=== PATIENT | female | born 1995 | race Caucasian/White ===

== ENCOUNTER 2023-06-13 14:26 | Day surgery (SDC) | payer MEDICAID, SELFPAY ==
[2023-06-13] VITALS (11 sets, daily range): BP systolic 86–116; BP diastolic 53–73; PULSE 68–97; RESP 12–19; TEMP 36.3–36.8; O2SAT 95–100; BMI 25.2
[2023-06-13 15:02] LABS: Absolute Lymphocyte Count 1.69 X10^3/uL (0.83-4.51); Absolute Neutrophil Count 3.7 X10^3/uL (2.0-7.7); Basophil# 0.04 X10^3/uL; Basophil% 0.6 % (0-1); Eosinophil# 0.48 X10^3/uL; Eosinophils% 7.6 % (0-5); Hematocrit 31.5 % (37-47); Hemoglobin 10.2 g/dL (12.0-15.0); Lymphocyte # 1.69 X10^3/ul (0.83-4.51); Lymphocyte % 26.8 % (19-41); Mean Corp Hgb Conc 32.4 g/dL (32-36); Mean Corpuscular Hgb 28.5 pg (27.0-32.0); Mean Platelet Vol. 10.9 fl (6.2-12.0); Monocyte# 0.36 X10^3/uL; Monocyte% 5.7 % (0-10); NRBC Flagged by Analyzer 0 % (0-5); Neutrophil # 3.66 X10^3/uL (2.7-7.7); Neutrophil % 58.2 % (47-70); Platelet Count 173 K/mm3 (150-450); RBC Distribution Width CV 13.4 % (11.6-14.6); RBC Distribution Width SD 43.6 fl (35.1-43.9); Red Blood Count 3.58 M/mm3 (4.2-5.4); White Blood Count 6.3 K/mm3 (4.4-11.0)
--- NOTE | 2023-06-13 15:15 | CT_ITS ---
STUDY: CT BRAIN WITHOUT CONTRAST REASON FOR EXAM: Female, 27 years old. head trauma TECHNIQUE: Transaxial CT imaging of the brain was performed without administration of intravenous contrast material. Individualized dose optimization techniques were used for this CT. COMPARISON: None FINDINGS: Normal calvarium. Normal soft tissues. Normal size ventricles and extra-axial spaces for the patient''s age. Normal white matter tracts of the cerebral hemispheres. Normal basal ganglia and thalami. Normal brainstem. Normal cerebellum. There is no intracranial hemorrhage. There are no findings of an acute ischemic infarction. There is sinus disease. ASPECTS 10 CT/Brain/Head without Contrast IMPRESSION: There are no acute intracranial findings. Electronically Signed: Ethan Kumar MD at 15:47 EST ,
--- NOTE | 2023-06-13 15:17 | US_ITS ---
STUDY: ULTRASOUND OF THE FEMALE PELVIS - COMPLETE REASON FOR EXAM: Female, 27 years old. vaginal bleeding 2 weeks post r/o RPOC TECHNIQUE: Endovaginal. Transvaginal US was obtained to better visualized the ovaries. COMPARISON: None. FINDINGS: The uterus is retroverted and is in a midline position. The uterus measures 13.5 cm. Normal uterine cervix. The endometrium measures 42 mm in thickness, and is heterogeneous (striated). There is no demonstrated endometrial mass. There is no demonstrated myometrial mass. I.U.D. - The patient does not have an I.U.D. The right ovary is visualized. The right ovary measures 3.2 cm. There is no right ovarian cyst or ovarian mass. There is no visualized right adnexal mass or complex lesion. There is normal arterial and normal venous vascularity. The left ovary is visualized. The left ovary measures 3.2 cm. There is no left ovarian cyst or ovarian mass. There is no visualized left adnexal mass or complex lesion. There is normal arterial and normal venous vascularity. There is minimal fluid in the cul-de-sac. Unremarkable urinary bladder. US/Transvaginal Non- IMPRESSION: There is minimal fluid in the cul-de-sac. Diffusely thickened endometrium. This may relate to blood proximal or possibly retained products of conception. Electronically Signed: Ethan Kumar MD at 17:06 EST ,
[2023-06-13 15:21] LABS: Anion Gap 4 (5-15); BUN 15 mg/dL (7-18); BUN/Creat Ratio 20.3 RATIO (10-20); Calcium,Total 8.1 mg/dL (8.5-10.1); Chloride 109 mmol/L (98-107); Creatinine, Serum 0.74 mg/dL (0.55-1.02); EST Glomerular Filtration Rate 99 mL/min (>60); Est Glom Filt Rate - Afr Amer 119 mL/min (>60); Estimated Creatinine Clearance 110.07 ml/min; Glucose 140 mg/dL (74-106); Potassium 4.5 mmol/L (3.5-5.1); Sodium Level 138 mmol/L (136-145); Troponin-I HS 4 pg/mL (3.0-54.0); hCG Titer Quant., Serum 3 mIU/mL (1-3)
[2023-06-13] MEDS: 0.9% Normal Saline (1000mL) 1,000 ML 999 ML IV (15:21)
[2023-06-13] MEDS: Ondansetron 4 MG/2 ML Vial IV (15:21)
--- NOTE | 2023-06-13 15:21 | ED.VIS.FEGU ---
HPI HPI - Female History of Present Illness Chief Complaint: Vag Bleeding [facility] Medical History (Updated 06/13/23 @ 18:[address] Ion Hahn, DO) Anxiety Depression IUGR (intrauterine growth restriction) Allergy/AdvReac Type Severity Reaction Status Date / Time No Known Allergies Allergy Verified 06/13/23 14:29 Social History Smoking Status: Current some day smoker tobacco type: e-cigarettes EXAM Physical Exam Const Vital Signs: 06/13/23 14:29 06/13/23 14:34 06/13/23 16:00 Temperature 97.5 F L Temperature Source Temporal Pulse Rate 83 71 Respiratory Rate 18 12 Respiratory Effort Normal Non-Labored Blood Pressure 102/71 116/73 Blood Pressure Mean 81 87 Pulse Ox 95 98 Oxygen Delivery Method Room Air Room Air 06/13/23 17:00 06/13/23 17:17 Temperature Temperature Source Pulse Rate 75 75 Respiratory Rate 12 14 Respiratory Effort Blood Pressure 98/66 97/61 Blood Pressure Mean 76 73 Pulse Ox 99 99 Oxygen Delivery Method Room Air Room Air MDM MDM MDM Narrative Medical decision making narrative: HISTORY OF PRESENT ILLNESS: 19-year-old female presents with vaginal bleeding. She notes she is 2 weeks . No she is a . States she has had intermittent bleeding has been heavier last 24 hours. States she is soaking through more than 3 pads per hour. Per the patient she received 2 g of TXA IntraOp by EMS. No she passed out prior to arrival. States she was standing and fell and hit her head. Denies any headache prior to passing out no she felt lightheaded dizzy warm before she passed out. Denies any abdominal pain or fever. Notes history of vasovagal syncope. Denies taking blood thinners. Denies any history of bleeding diathesis REVIEW OF SYSTEMS: Pertinent positives: Syncope, vaginal bleeding Pertinent negatives: Headache, chest pain, palpitations, PHYSICAL EXAM: Nursing triage notes reviewed, Vital signs reviewed Constitutional: please see mdm HENT: MMM Eyes: Pupils equal round and reactive to light, Extraocular muscles intact Neck: No stridor, no JVD, full neck ROM Lungs: Clear to auscultation, No wheezing or rales. No increased work of breathing, no conversational dyspnea, no accessory muscle use, no nasal flaring. No respiratory distress noted Heart: Regular rate and rhythm, No murmurs, No rubs and No gallops, 2+ distal pulses (radial, femoral, posterior tibial) in all extremities Abdomen: Soft, there is no tenderness, rigidity, rebound or guarding, no obvious peritoneal signs, no palpable pulsatile abdominal masses, no auscultated abdominal bruit : No CVAT, pelvic exam performed with Amisha GRIFFIN as a rice farmworker showed some mild pooling of blood in the vaginal vault no obvious lacerations or other abnormalities. Extremities: No edema Neuro: No focal neurological deficits, cranial nerves II through XII intact, 5/5 strength in all extremities. Intact sensation to light touch in all extremities, 2+ reflexes bilateral patella tendons. Normal gait. No ataxia. Skin: No rash or lesions noted MEDICAL DECISION MAKING: Chief Complaint: Vaginal bleeding External records reviewed: Hemoglobin 8.8 on 05/20/2022 Factors affecting care: 2 weeks History obtained from others: Patient's Consults: ADVERTISING ACCOUNT EXECUTIVE spoke with Dr. Krueger MDM Narrative: Patient was initially hemodynamically stable, afebrile, nontoxic-appearing. Exam without focal cardiopulmonary maladies, without focal deficits. exam with oozing blood but no active severe hemorrhage. I considered the following differential diagnosis: hemorrhage, retained products of conception, severe anemia 2 large-bore IVs were placed, IV fluids were given for resuscitation, pelvic exam without any focus of bleeding or ability to repair. ALL IMAGES (IF OBTAINED) HAVE BEEN PERSONALLY REVIEWED AND INTERPRETED BY MYSELF. EKG normal sinus rhythm, normal axis, no intervals, no STEMI CBC with no leukocytosis, improving hemoglobin of 10.2, no thrombocytopenia High-sensitivity troponin is negative, no evidence of myocardial ischemia CMP without significant Yasmine normality, no MIRACLE, no anion gap, I have personally reviewed the patient's chest x-ray. Chest x-ray is unremarkable for pulmonary edema, pneumothorax, pneumonia or focal cardiopulmonary abnormality. CT scan of the head was negative Transvaginal ultrasound shows evidence of retained products of conception Spoke to Dr. Krueger who recommended OR intervention for dilation curettage. Patient updated. The patient and/or family, caregivers express understanding. The patient and/or family, caregivers agrees with the plan. Shared decision making: I will have a discussion with the patient and or visitors regarding risk/benefits of further testing or admission. They will be made aware of of the risk/benefits inherent in this decision they will be given the opportunity to voice understanding. Total critical care time today provided was at least 35 minutes. This excludes separately billable procedures. Critical care time (if documented) is secondary to the patient having high probability of clinically significant/life threatening deterioration in the patient's condition which required my urgent intervention. Impression: 1. Vaginal bleeding 2. Hypotension 3. Retained products of conception Dispo: Admit to OR This note was generated with [employer] dictation software. It may contain incorrect words, spelling, and punctuation that were not noted in review of the chart prior to signing. Lab Data Labs: Laboratory Results - last 24 hr 06/13/23 14:40 WBC 6.3 RBC 3.58 L Hgb 10.2 L Hct 31.5 L MCV 88.0 MCH 28.5 MCHC 32.4 RDW Std Deviation 43.6 RDW Coeff of Dwayne 13.4 Plt Count 173 MPV 10.9 Immature Gran % (Auto) 1.100 H Neut % (Auto) 58.2 Lymph % (Auto) 26.8 [place] % (Auto) 5.7 Eos % (Auto) 7.6 H Baso % (Auto) 0.6 Absolute Neuts (auto) 3.7 Absolute Lymphs (auto) 1.69 Nucleated RBC % 0 PT 14.4 INR 1.1 APTT 24.7 Sodium 138 Potassium 4.5 Chloride 109 H Carbon Dioxide 25.0 Anion Gap 4 L BUN 15 Creatinine 0.74 Estim Creat Clear Calc 110.07 Est GFR (MDRD) Af Amer 119 Est GFR (MDRD) Non-Af 99 BUN/Creatinine Ratio 20.3 H Glucose 140 H Calcium 8.1 L Troponin I High Sens 4 HCG, Quant 3 Blood Type A POSITIVE Antibody Screen NEGATIVE Radiography Diagnostic Testing: Clinical Impression(s) from Imaging Studies Brain CT 06/13/23 15:15 IMPRESSION: There are no acute intracranial findings. Electronically Signed: Ethan Kumar MD at 15:47 EST , Transvaginal US 06/13/23 15:17 IMPRESSION: There is minimal fluid in the cul-de-sac. Diffusely thickened endometrium. This may relate to blood proximal or possibly retained products of conception. Electronically Signed: Ethan Kumar MD at 17:06 EST , Chest X-Ray 06/13/23 15:34 IMPRESSION: No radiographic evidence of acute cardiopulmonary disease. Electronically Signed: Ethan Kumar MD at 15:47 EST , Discharge Plan Dx/Rx/DC Orders Clinical Impression: Retained products of conception Disposition Disposition: Acute Care [facility]
--- OUTSIDE RECORDS SUMMARY | 2023-06-13 15:31 | XMS RPT_ITS | CCD ---
Author Name Unknown Address [address] [place] [address] Organization [facility] Care Team Providers Care Traffic Agent Name Role Phone JESSE WILLARD Unavailable Unavailable SAMUEL CRONIN Unavailable Unavailable [place], Rocio October Unavailable Unavailab Jordan Aguilar Unavailable Unavailable [place], Rocio October Unavailable Unavailab le [place], Rocio October Unavailable Unavailab le [place], Rocio October Unavailable Unavailab le [place], Rocio October Unavailable Unavailab le [place], Rocio October Unavailable Unavailab le [place], Rocio October Unavailable Unavailab le [place], Rocio October Unavailable Unavailab le [place], Rocio October Unavailable Unavailab le [place], Rocio October Unavailable Unavailab gama [place], Rocio October Unavailable Unavailab Lauren DE LA TORRE, Jordan Conklin Primary Care Provider 1( [phone] Jordan Alejo MD Primary Care Provider JORDAN ALEJO Primary Care Unavailable YUDY ADAME Referring Unavailable JORDAN ALEJO Primary Care Unavailable YUDY ADAME Attending Unavailable YUDY ADAME Referring Unavailable JORDAN ALEJO Primary Care Unavailable FARHAN PICKARD Attending Unavailable JORDAN ALEJO Primary Care Unavailable MIKE CAMARGO Attending Unavailable FARHAN PICKARD Referring Unavailable JORDAN ALEJO Primary Care Unavailable MIKE CAMARGO Attending Unavailable JORDAN ALEJO Primary Care Unavailable MIKE CAMARGO Referring Unavailable JORDAN ALEJO Primary Care Unavailable MIKE CAMARGO Attending Unavailable JORDAN ALEJO Primary Care Unavailable YUDY ADAME Referring Unavailable JORDAN ALEJO Primary Care Unavailable JORDAN ALEJO Primary Care Unavailable MIKE CAMARGO Attending Unavailable JORDAN ALEJO Primary Care Unavailable RAMESH DIAZ Attending Unavailable JORDAN ALEJO Primary Care Unavailable PLOTYUDY MURRAY Referring Unavailable JORDAN ALEJO Primary Care Unavailable JORDAN ALEJO Primary Care Unavailable PLOTTREVOR, YUDY Attending Unavailable PB PHAM Referring Unavail able JORDAN ALEJO Primary Care Unavailable PLOTYUDY MURRAY Attending Unavailable JORDAN ALEJO Primary Care Unavailable PLOTYUDY MURRAY Attending Unavailable JORDAN ALEJO Primary Care Unavailable FARHAN PICKARD Attending Unavailable JORDAN ALEJO Primary Care Unavailable PLOTTREVOR, YUDY Referring Unavailable JORDAN ALEJO Primary Care Unavailable FARHAN PICKARD Referring Unavailable JORDAN ALEJO Primary Care Unavailable PLOTTREVOR, YUDY Referring Unavailable JORDAN ALEJO Primary Care Unavailable FARHAN PICKARD Referring Unavailable Allergies Allergy Classification Reported Allergen(s) Allergy Type Date of Onset Reaction(s) Facility (1 source) No Known Medication Allergies; Translations: [No Known Medication Allergies] Propensity to adverse reactions to drug (disorder) [facility] Repository (20 sources) Seasonal allergy; Translations: [SEASONAL ALLERGIES] Allergy to substance 4 Other: See [facility] (20 sources) Bees; Translations: [BEES] Propensity to adverse reactions 5 Swelling [facility] Work Phone: Medications Completed/Discontinued Medications Medication Drug Class(es) Dates Sig (Normalized) Sig (Original) Ethinyl Estradiol / Levonorgestrel (2 sources) Progestin, Estrogen, Progestin-containi ng Intrauterine Device Start: 03-05-2015 End: 03-30-2022 take 1 tablet by mouth once daily Levonorgestrel-Ethi nyl Estrad (LEVORA-28) 0.15-0.03 mg per tablet Indications: General counseling for prescription of oral contraceptives Take 1 tablet by mouth once daily. 3 Package 1 03/05/2015 03/30/2022 Discontinued Problems Active Problems Problem Classification Problem Date Documented Date Episodic/Chronic Coagulation and hemorrhagic disorders (1 source) Thrombocytopenia, unspecified; Translations: [Thrombocytopenia affecting (HCC)] Onset: 04-16-2023 Chronic Other complications of (18 sources) Anemia during - baby not yet delivered; Translations: [Anemia complicating , third trimester] Onset: 04-15-2022 04-15-2022 Chronic Other complications of (5 sources) Anemia of ; Translations: [Anemia complicating , third trimester] Onset: 03-18-2023 03-18-2023 Chronic Other complications of (20 sources) High risk ; Translations: [Supervision of high risk , unspecified, third trimester] Onset: 03-30-2022 Episodic Other complications of (20 sources) care status; Translations: [Supervision of with insufficient care, third trimester] Onset: 03-30-2022 Episodic Other complications of (20 sources) Thrombocytopenic disorder; Translations: [Other diseases of the blood and blood-forming organs and certain disorders involving the immune mechanism complicating , unspecified trimester] Onset: 03-30-2022 Episodic Other complications of (4 sources) Uterine size for dates discrepancy; Translations: [Uterine size-date discrepancy, third trimester] Episodic Other complications of (4 sources) Poor growth affecting management; Translations: [Maternal care for other known or suspected poor growth, third trimester, not applicable or unspecified] Episodic Other complications of (1 source) Other diseases of the blood and blood-forming organs and certain disorders involving the immune mechanism complicating , unspecified trimester; Translations: [Thrombocytopenia affecting (HCC)] Onset: 04-16-2023 Episodic Other complications of (1 source) Supervision of high risk , unspecified, third trimester; Translations: [Supervision of high risk in third trimester] Onset: 04-14-2023 Episodic Other complications of (1 source) Supervision of high risk , unspecified, second trimester; Translations: [Supervision of high risk in second trimester] Onset: 03-16-2023 Episodic Other and delivery including normal (20 sources) ; Translations: [Encounter for supervision of normal , unspecified, unspecified trimester] Onset: 03-24-2022 Episodic Other screening for suspected conditions (not mental disorders or infectious disease) (10 sources) Patient encounter status; Translations: [Encounter for other specified screening] Onset: 01-19-2023 01-18-2023 Episodic Residual codes; unclassified (3 sources) Gestation period, 31 weeks; Translations: [31 weeks gestation of ] Episodic Residual codes; unclassified (1 source) Gestation period, 33 weeks; Translations: [33 weeks gestation of ] Episodic Residual codes; unclassified (1 source) Gestation period, 34 weeks; Translations: [34 weeks gestation of ] Episodic Residual codes; unclassified (1 source) Gestation period, 35 weeks; Translations: [35 weeks gestation of ] Episodic Residual codes; unclassified (2 sources) Gestation period, 38 weeks; Translations: [38 weeks gestation of ] Episodic Residual codes; unclassified (1 source) Gestation period, 16 weeks; Translations: [16 weeks gestation of ] 12-28-2022 Episodic Residual codes; unclassified (1 source) Gestation period, 18 weeks; Translations: [18 weeks gestation of ] 01-12-2023 Episodic Residual codes; unclassified (1 source) Gestation period, 19 weeks; Translations: [19 weeks gestation of ] 01-18-2023 Episodic Residual codes; unclassified (1 source) ultrasound scan abnormal; Translations: [Pyelectasis of fetus on ultrasound] 01-18-2023 Episodic Residual codes; unclassified (1 source) Gestation period, 22 weeks; Translations: [22 weeks gestation of ] 02-09-2023 Episodic Residual codes; unclassified (1 source) Gestation period, 27 weeks; Translations: [27 weeks gestation of ] 03-16-2023 Episodic Residual codes; unclassified (2 sources) Gestation period, 29 weeks; Translations: [29 weeks gestation of ] 03-31-2023 Episodic Residual codes; unclassified (1 source) 31 weeks gestation of ; Translations: [31 weeks gestation of ] Onset: 04-14-2023 Episodic Residual codes; unclassified (1 source) 18 weeks gestation of ; Translations: [18 weeks gestation of ] Onset: 03-31-2023 Episodic Substance-related disorders (17 sources) History of clinical finding in subject; Translations: [History of marijuana use] Onset: 12-23-2022 12-23-2022 Chronic Urinary tract infections (1 source) Urinary tract infection, site not specified; Translations: [Urinary tract infection, site not specified] Onset: 12-17-2017 Episodic Past or Other Problems Problem Classification Problem Date Documented Date Episodic/Chronic Immunizations and screening for infectious disease (20 sources) Encounter for screening for infections with a predominantly sexual mode of transmission; Translations: [Contact with and (suspected) exposure to other viral communicable diseases] Onset: 01-26-2018 Episodic Other complications of (20 sources) Late entry into care; Translations: [Supervision of with insufficient care, unspecified trimester] Onset: 12-23-2022 12-23-2022 Episodic Other complications of (19 sources) Supervision of with other poor reproductive or obstetric history, unspecified trimester; Translations: [ with other poor obstetric history] Onset: 12-23-2022 12-23-2022 Episodic Other complications of (18 sources) Finding of pattern of ; Translations: [Supervision of other high risk pregnancies, unspecified trimester] Onset: 12-23-2022 12-23-2022 Episodic Other complications of (1 source) Supervision of with insufficient care, unspecified trimester; Translations: [Late care affecting , antepartum] Onset: 12-23-2022 Episodic Residual codes; unclassified (20 sources) Other problems related to lifestyle; Translations: [Other problems related to lifestyle] Onset: 03-24-2022 Episodic Residual codes; unclassified (14 sources) History of previous intrauterine growth restricted ; Translations: [Personal history of other complications of , childbirth and the puerperium] Onset: 12-28-2022 12-28-2022 Episodic Residual codes; unclassified (1 source) 16 weeks gestation of ; Translations: [16 weeks gestation of ] Onset: 01-18-2023 Episodic Screening and history of mental health and substance abuse codes (20 sources) H/O: depression; Translations: [Personal history of other mental and behavioral disorders] Onset: 03-24-2022 Episodic Substance-related disorders (20 sources) Marijuana user; Translations: [Drug use complicating , unspecified trimester] Onset: 03-24-2022 Episodic Results Test Name Value Interpretation Reference Range Facil ity Vital Signs Date Time Vital Sign Value Performing Clinician Eduardo rajput 04-14-2023 08:04-0500 Body weight 78.93 kg Farhan Pickard APRN.CNM Work Phone: [facility] 04-14-2023 08:04-0500 Diastolic blood pressure 62 mm[Hg] Farhan Pickard STEAM PRESSER.CNM Work Phone: [facility] 04-14-2023 08:04-0500 Systolic blood pressure 112 mm[Hg] Farhan Pickard STEAM PRESSER.CNM Work Phone: [facility] 03-31-2023 08:28-0500 Body weight 75.3 kg Yudy Plotts STEAM PRESSER.CNM Work Phone: [facility] 03-31-2023 08:28-0500 Diastolic blood pressure 82 mm[Hg] Yudy Plotts STEAM PRESSER.CNM Work Phone: [facility] 03-31-2023 08:28-0500 Systolic blood pressure 116 mm[Hg] Yudy Plotts STEAM PRESSER.CNM Work Phone: [facility] 03-16-2023 08:41-0500 Body weight 75.48 kg Mike Camargo MD Work Phone: [facility] 03-16-2023 08:41-0500 Diastolic blood pressure 80 mm[Hg] Mike Camargo MD Work Phone: [facility] 03-16-2023 08:41-0500 Systolic blood pressure 118 mm[Hg] Mike Camargo MD Work Phone: [facility] 02-09-2023 09:43-0400 Body weight 71.94 kg Mike Camargo MD Work Phone: [facility] 02-09-2023 09:43-0400 Diastolic blood pressure 70 mm[Hg] Mike Camargo MD Work Phone: [facility] 02-09-2023 09:43-0400 Systolic blood pressure 102 mm[Hg] Mike Camargo MD Work Phone: [facility] 01-12-2023 08:50-0400 Body height 170.2 cm Yudy Plotts STEAM PRESSER.CNM Work Phone: [facility] 01-12-2023 08:50-0400 Body weight 69.04 kg Yudy Plotts STEAM PRESSER.CNM Work Phone: [facility] 01-12-2023 08:50-0400 Diastolic blood pressure 62 mm[Hg] Yudy Plotts STEAM PRESSER.CNM Work Phone: [facility] 01-12-2023 08:50-0400 Systolic blood pressure 110 mm[Hg] Yudy Plotts STEAM PRESSER.CNM Work Phone: [facility] 12-28-2022 09:30-0400 Body weight 67.13 kg Yudy Plotts STEAM PRESSER.CNM Work Phone: [facility] 12-28-2022 09:30-0400 Diastolic blood pressure 68 mm[Hg] Yudy Plotts STEAM PRESSER.CNM Work Phone: [facility] 12-28-2022 09:30-0400 Systolic blood pressure 110 mm[Hg] Yudy Plotts STEAM PRESSER.CNM Work Phone: [facility] 05-15-2022 09:30-0500 Body weight 74.75 kg Farhan Pickard STEAM PRESSER.CNM Work Phone: [facility] 05-15-2022 09:30-0500 Diastolic blood pressure 70 mm[Hg] Farhan Pickard STEAM PRESSER.CNM Work Phone: [facility] 05-15-2022 09:30-0500 Systolic blood pressure 110 mm[Hg] Farhan Pickard STEAM PRESSER.CNM Work Phone: [facility] 05-05-2022 10:26-0500 Body height 160 cm Naseem Jung MD Work Phone: [facility] 05-05-2022 10:26-0500 Body weight 74.84 kg Naseem Jung MD Work Phone: [facility] 05-05-2022 10:26-0500 Diastolic blood pressure 76 mm[Hg] Naseem Jung MD Work Phone: [facility] 05-05-2022 10:26-0500 Systolic blood pressure 110 mm[Hg] Naseem Jung MD Work Phone: [facility] 04-28-2022 10:55-0500 Body weight 73.03 kg Pb Edgar MD Work Phone: [facility] 04-28-2022 10:55-0500 Diastolic blood pressure 70 mm[Hg] Pb Edgar MD Work Phone: [facility] 04-28-2022 10:55-0500 Systolic blood pressure 110 mm[Hg] Pb Edgar MD Work Phone: [facility] 04-14-2022 10:42-0500 Body weight 70.67 kg Sudha Tammi STEAM PRESSER.APPLICATION COORDINATOR Work Phone: [facility] 04-14-2022 10:42-0500 Diastolic blood pressure 70 mm[Hg] Sudha Jefferson STEAM PRESSER.APPLICATION COORDINATOR Work Phone: [facility] 04-14-2022 10:42-0500 Systolic blood pressure 112 mm[Hg] Sudha Tammi STEAM PRESSER.APPLICATION COORDINATOR Work Phone: [facility] 03-30-2022 10:34-0500 Body weight 70.76 kg Pb Edgar MD Work Phone: [facility] 03-30-2022 10:34-0500 Diastolic blood pressure 72 mm[Hg] Pb Edgar MD Work Phone: [facility] 03-30-2022 10:34-0500 Systolic blood pressure 116 mm[Hg] Pb Edgar MD Work Phone: [facility] Encounters Encounter Date Encounter Type Care Provider Facility Start: 05-31-2023 End: 05-31-2023 ambulatory JORDAN ALEJO Facility:[facility] Start: 05-27-2023 End: 05-27-2023 ambulatory JORDAN ALEJO Facility:[facility] Start: 05-19-2023 End: 05-19-2023 ambulatory JORDAN ALEJO Facility:[facility] Start: 05-13-2023 End: 05-13-2023 ambulatory JORDANMERLE ALEJO Facility:[facility] Start: 04-29-2023 End: 04-29-2023 ambulatory JORDAN ALEJO Facility:[facility] Start: 04-16-2023 End: 04-17-2023 ambulatory JORDAN ALEJO Facility:[facility] Start: 04-15-2023 Telephone encounter Explosive Ordnance Disposal Technician RN Maternal Medicine Procedures Date Procedure Procedure Detail Performing Clinician Start: 03-31-2023 URINE OB DIP B/O Parish Adame STEAM PRESSER.CNM Work Phone: Start: 03-31-2023 Us preg uterus after 1st trimest 05/10 gestation Yudy Adame STEAM PRESSER.CNM Work Phone: Start: 03-16-2023 URINE OB DIP B/O Mike Camargo MD Work Phone: Start: 02-09-2023 URINE OB DIP B/O Mike Camargo MD Work Phone: Start: 01-18-2023 Us preg uterus after 1st trimest 05/10 gestation Pb Edgar MD Work Phone: Start: 01-12-2023 Antibody screen JORDAN ARREDONDO Plan of Treatment Date Care Activity Detail Author Start: 01-12-2026 Pap Testing Pap Testing [facility] Start: 08-18-2024 PAP TESTING PAP TESTING [facility] Start: 04-15-2023 RSV Vaccine (1 - Risk 1-dose series) RSV Vaccine (1 - Risk 1-dose series) [facility] Start: 04-14-2023 End: 07-14-2023 CBC W Auto Differential panel - Blood CBC + DIFF Lab Routine Supervision of high risk in third trimester 31 weeks gestation of Expected: 04/14/2023, Expires: 07/14/2023 [facility] Work Phone: Immunizations Immunization Date Immunization Notes Care Provider Polina kirk 10-13-2004 tetanus and diphther ia toxoids, adsorbed, preservative free, for adult use (2 Lf of tetanus toxoid and 2 Lf of diphtheria toxoid) Nurse Wstr Work Phone: [facility] Work Phone: 12-03-1999 diphtheria, tetanus toxoids and acellular pertussis vaccine Nurse Wstr Work Phone: [facility] Work Phone: 12-03-1999 measles, mumps and rubella virus vaccine Nurse Wstr Work Phone: [facility] Work Phone: 12-03-1999 poliovirus vaccine, inactivated Nurse Wstr Work Phone: [facility] Work Phone: 02-13-1998 diphtheria, tetanus toxoids and acellular pertussis vaccine Nurse Wstr Work Phone: [facility] Work Phone: 02-13-1998 haemophilus influenz ae type b vaccine, PRP-D conjugate Nurse Wstr Work Phone: [facility] Work Phone: 02-22-1996 DTP-Haemophilus influenzae type b conjugate vaccine Nurse Wstr Work Phone: [facility] Work Phone: 02-22-1996 measles, mumps and rubella virus vaccine Nurse Wstr Work Phone: [facility] Work Phone: 02-22-1996 trivalent poliovirus vaccine, live, oral Nurse Wstr Work Phone: [facility] Work Phone: 12-09-1995 Chicken Pox (disease) Nurse Wstr Work Phone: [facility] Work Phone: 05-23-1995 DTP-Haemophilus influenzae type b conjugate vaccine Nurse Wstr Work Phone: [facility] Work Phone: 05-23-1995 trivalent poliovirus vaccine, live, oral Nurse Wstr Work Phone: [facility] Work Phone: 05-13-1995 hepatitis B vaccine, pediatric or pediatric/adolescent dosage Nurse Wstr Work Phone: [facility] Work Phone: 1994 DTP-Haemophilus influenzae type b conjugate vaccine Nurse Wstr Work Phone: [facility] Work Phone: 1994 hepatitis B vaccine, pediatric or pediatric/adolescent dosage Nurse Wstr Work Phone: [facility] Work Phone: 1994 trivalent poliovirus vaccine, live, oral Nurse Wstr Work Phone: [facility] Work Phone: 1994 hepatitis B vaccine, pediatric or pediatric/adolescent dosage Nurse Wstr Work Phone: [facility] Work Phone: Payers Date Payer Category Payer Medicaid [id number] 2022 Medicaid [id number] 2018 Unknown 2017 Private Health Insurance 2017 Unknown [id number] 1994 Unknown [id number] 1994 Unknown [id number] 1994 Unknown [id number] 1994 Unknown [id number] Social History Date Type Detail Facility Start: 03-24-2022 Tobacco smoking stat [facility] Ex-smoker [facility] Work Phone: End: 04-20-2012 History of tobacco use Current smoker [facility] Work Phone: End: 04-20-2012 History of tobacco use Cigarette Smoker [facility] Work Phone: Start: 03-24-2022 Tobacco use and exposure Smokeless tobacco non-user [facility] Work Phone: Start: 03-24-2022 End: 04-14-2023 Alcohol intake Current non-drinker of alcohol (finding) [facility] Start: 03-24-2022 Education 13 [facility] Start: 09-05-2021 [facility] Start: 1995 Sex Assigned At Female C [facility] Start: 03-14-2022 End: 03-24-2022 Exposure to SARS-CoV-2 (event) Not sure [facility] Work Phone: Start: 05-25-2022 End: 03-16-2023 History of Social function [facility] Start: 05-25-2022 End: 03-16-2023 Tobacco use panel [facility] Start: 03-23-2022 Gender identity Identifies as female gender (finding) [facility] Start: 03-23-2022 Sexual orientation Heterosexual (fin ding) [facility] Start: 12-23-2022 Education 15 [facility] The thought of scott ledezma myself has occurred to me Never [facility] Goals Date Patient Goal Desired Activity /State Personal health goal Personal health goal Clinical Notes 03-24-2022 to 06-02-2023 Telephone Encounter - Dunia Kay RN - 04/15/2023 11:23 AM ESTPrenatal Quick Notes - Farhan Pickard APRN.CN - 04/14/2023 8:20 AM ESTPatient InstructionsPatient InstructionsPatient Instructions Note Date & Type Note Facility 06-02-2023 Note HNO ID: [id number] Author: DUNIA SUAZO RN Service: ? Author Type: Registered Nurse Type: Progress Notes Filed: 06/02/2023 09:44 Note Text: Patient delivered via at home. See OB Outcome note. Dunia Suazo RN [facility] 04-30-2023 Note HNO ID: [id number] Author: Lima Layne RN Service: ? Author Type: Registered Nurse Type: Progress Notes Filed: 04/30/2023 1:44 PM Note Text: Care Recommendations listed below: Care Plan: Unilateral AP renal pelvis dilation 11 mm Plan: MD Mike Consults: Specialty: Peds Urology Delivery Plan: Date: tb, Location: [place] Mode of delivery: Induction Delivery provider:Laborist with MFM assist as needed floor: Routine Plan: Routine Follow up recommended per pediatric urology anomaly management tree: PAM in hospital at > 48 hours Amoxicillin prophylaxis 10mg/kg daily Outpatient PAM and urology consult 1-2 weeks post-delivery Lima Layne RN [facility] 04-15-2023 Miscellaneous Notes 3rd risk assessment form submitted 04/15/2023. Dunia Kay RN documented in this encounter [facility] 04-14-2023 Miscellaneous Notes CECELIA-S: Shari Kwan is a 27 year old female who presents at 31w6d with RAYMOND:06/10/2023, by Last Menstrual Period for a routine visit. Denies headache, visual changes, chest pain, shortness of breath, vaginal bleeding, leakage of fluid, or dysuria. Feeling well, no complaints. O: See flow sheet Gen: No apparent distress, appears tired/sleepy Abd: Gravid, nontender TWG 44 lb S=D ASSESSMENT/PLAN: 1. Supervision of high risk in third trimester 2. 31 weeks gestation of P: 1) PTL precautions reviewed and when to call 2) RTO at 2 wk for growth US 3) Growth US 03/31, normal renal dilation,FW 38%, LILIA 14 4) Marijuana use last 2 weeks ago, recommend cessation and discussed risk 5) Hx IUGR, S<D this . Repeat growth in 4 weeks 6) Didn't start iron, taking PN with iron. Eating iron rich foods. 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 I have re-performed the HPI, Physical Examination, Assessment and Plan. Farhan Pickard APRN.CNM documented in this encounter [facility] 04-14-2023 Instructions Zi Pineda Cma - 04/14/2023 8:05 AM EST SEQUENTIAL SCREENINGS The [facility] offers sequential screenings for women who are interested in screenings for chromosomal abnormalities and certain defects during a . The sequential screen combines ultrasound and blood tests to determine the risk of chromosomal abnormalities, including Down's Syndrome (Trisomy 21) and Trisomy 18, as well as open neural tube defects including spina bifida. Ultrasound examination is performed between 11 weeks and 13 weeks gestational age. Blood tests are drawn after the ultrasound and again later in the between 15 and 21 weeks gestational age. Please let your physician know if you are interested in this testing. It will require an appointment with our scheme technician. This is not an ultrasound performed by a physician in our office during a routine visit. SIGNS AND SYMPTOMS OF LABOR 1. Contractions every 10 minutes or more often 2. Clear, pink, or brownish fluid (water) leaking from vagina 3. Feeling that baby is pushing down, pressure 4. Low, dull backache 5. Cramps that feel like a period 6. Cramps with or without diarrhea If you notice any of the above symptoms, contact our office at [phone] and ask to speak with a nurse. After hours, you can call doctors registry at [phone] OR call [facility] at [phone] and ask to have the doctor concrete analyst paged. If you consider this an emergency, dial [phone] or go to your nearest emergency department. NEED HELP? Are you dealing with a violent or abusive relationship? Are you a victim of rape or sexual assult? Call [facility] ([place]) 24 hour Crisis Hotline: 149.663.5338 or 943-199-7293. MANUAL Your Guide to a Healthy manual is now on-line. Visit [email or web address] to download your free copy documented in this encounter [facility] 03-31-2023 Miscellaneous Notes S: Shari Kwan is a 27 year old female who presents at 29.6 weeks gestation for a routine visit. Just completed growth US- EFW 38%, LILIA 14. Denies headache, visual changes, chest pain, shortness of breath, vaginal bleeding, leakage of fluid, or dysuria. Feeling well, no complaints. O: See flow sheet Gen: No apparent distress Abd: Gravid, nontender ASSESSMENT/PLAN: 1. Thrombocytopenia affecting (HCC) - ICD9: 649.30, 287.5, ICD10: O99.119, D69.6 (primary diagnosis) - CBC- Repeat in 4 weeks 2. Supervision of high risk in third trimester - ICD9: V23.9, ICD10: O09.93 3. 29 weeks gestation of - ICD9: V22.2, ICD10: Z3A.29 P: 1) PTL precautions reviewed and when to call 2) RTO 2 weeks or sooner if needed Yudy Adame APRN.CNM documented in this encounter [facility] 03-31-2023 Instructions Laurel Arriaga Ma - 03/31/2023 8:13 AM EST SEQUENTIAL SCREENINGS The [facility] offers sequential screenings for women who are interested in screenings for chromosomal abnormalities and certain defects during a . The sequential screen combines ultrasound and blood tests to determine the risk of chromosomal abnormalities, including Down's Syndrome (Trisomy 21) and Trisomy 18, as well as open neural tube defects including spina bifida. Ultrasound examination is performed between 11 weeks and 13 weeks gestational age. Blood tests are drawn after the ultrasound and again later in the between 15 and 21 weeks gestational age. Please let your physician know if you are interested in this testing. It will require an appointment with our scheme technician. This is not an ultrasound performed by a physician in our office during a routine visit. SIGNS AND SYMPTOMS OF LABOR 1. Contractions every 10 minutes or more often 2. Clear, pink, or brownish fluid (water) leaking from vagina 3. Feeling that baby is pushing down, pressure 4. Low, dull backache 5. Cramps that feel like a period 6. Cramps with or without diarrhea If you notice any of the above symptoms, contact our office at [phone] and ask to speak with a nurse. After hours, you can call doctors registry at [phone] OR call [facility] at [phone] and ask to have the doctor concrete analyst paged. If you consider this an emergency, dial [phone]- or go to your nearest emergency department. NEED HELP? Are you dealing with a violent or abusive relationship? Are you a victim of rape or sexual assult? Call [facility] ([place]) 24 hour Crisis Hotline: 883.818.9211 or 968-716-4016. MANUAL Your Guide to a Healthy manual is now on-line. Visit [email or web address] to download your free copy documented in this encounter [facility] 03-22-2023 Miscellaneous Notes Patient reviewed provider's Viewabill message. Jessica Bell RN Left message for patient to call office or check CBC result [place] message. Jessica Bell RN ----- Message from Mike Camargo MD sent at 03/18/2023 9:23 AM EST ----- Mild anemia - needs every other day iron with OJ Platelets slightly low at 139 Kalpesh to review at next visit & discuss repeat cbc Other labs normal Mike Camargo MD documented in this encounter [facility] 03-16-2023 Miscellaneous Notes KJ - VB No. LOF No. CTXS No. Movement: present. Other c/o: No. Medication list reviewed. Physical Exam See Flow Sheet Gen: no accute distress, well appearing Abd: soft, nontender, gravid A/P 27w5d Estimated Date of Delivery: 06/10/23 Labs: 28 week labs today Bilateral renal pelvis dilation & h/o IUGR - f/u US scheduled Declines Tdap Declines LARC PTL precautions reviewed, Kick counts reviewed. Mike Camargo MD documented in this encounter [facility] 03-16-2023 Instructions s Laurel Adams - 03/16/2023 8:33 AM EST SEQUENTIAL SCREENINGS The [facility] offers sequential screenings for women who are interested in screenings for chromosomal abnormalities and certain defects during a . The sequential screen combines ultrasound and blood tests to determine the risk of chromosomal abnormalities, including Down's Syndrome (Trisomy 21) and Trisomy 18, as well as open neural tube defects including spina bifida. Ultrasound examination is performed between 11 weeks and 13 weeks gestational age. Blood tests are drawn after the ultrasound and again later in the between 15 and 21 weeks gestational age. Please let your physician know if you are interested in this testing. It will require an appointment with our scheme technician. This is not an ultrasound performed by a physician in our office during a routine visit. SIGNS AND SYMPTOMS OF LABOR 1. Contractions every 10 minutes or more often 2. Clear, pink, or brownish fluid (water) leaking from vagina 3. Feeling that baby is pushing down, pressure 4. Low, dull backache 5. Cramps that feel like a period 6. Cramps with or without diarrhea If you notice any of the above symptoms, contact our office at [phone] and ask to speak with a nurse. After hours, you can call doctors registry at [phone] OR call [facility] at [phone] and ask to have the doctor concrete analyst paged. If you consider this an emergency, dial 9--1 or go to your nearest emergency department. NEED HELP? Are you dealing with a violent or abusive relationship? Are you a victim of rape or sexual assult? Call [facility] ([facility] 24 hour Crisis Hotline: 389.557.5417 or 633-112-4636. MANUAL Your Guide to a Healthy manual is now on-line. Visit [email or web address] to download your free copy documented in this encounter [facility] 02-16-2023 Miscellaneous Notes 2nd risk assessment form submitted 02/16/23 Jinny Garcia RN documented in this encounter [facility] 02-09-2023 Miscellaneous Notes KJ - VB No. LOF No. CTXS No. Movement: present. Other c/o: No. Medication list reviewed. Physical Exam See Flow Sheet Gen: no accute distress, well appearing Abd: soft, nontender, gravid A/P 22w5d Estimated Date of Delivery: 06/10/23 Labs: 28 week labs prdered Bilateral renal pelvis dilation - schedule follow up US at 30 weeks Mike Camargo MD documented in this encounter [facility] 02-09-2023 Instructions Laurel Arriaga Ma - 02/09/2023 9:38 AM EDT SEQUENTIAL SCREENINGS The [facility] offers sequential screenings for women who are interested in screenings for chromosomal abnormalities and certain defects during a . The sequential screen combines ultrasound and blood tests to determine the risk of chromosomal abnormalities, including Down's Syndrome (Trisomy 21) and Trisomy 18, as well as open neural tube defects including spina bifida. Ultrasound examination is performed between 11 weeks and 13 weeks gestational age. Blood tests are drawn after the ultrasound and again later in the between 15 and 21 weeks gestational age. Please let your physician know if you are interested in this testing. It will require an appointment with our scheme technician. This is not an ultrasound performed by a physician in our office during a routine visit. SIGNS AND SYMPTOMS OF LABOR 1. Contractions every 10 minutes or more often 2. Clear, pink, or brownish fluid (water) leaking from vagina 3. Feeling that baby is pushing down, pressure 4. Low, dull backache 5. Cramps that feel like a period 6. Cramps with or without diarrhea If you notice any of the above symptoms, contact our office at [phone] and ask to speak with a nurse. After hours, you can call doctors registry at [phone] OR call [facility] at [phone] and ask to have the doctor concrete analyst paged. If you consider this an emergency, dial 91-3 or go to your nearest emergency department. NEED HELP? Are you dealing with a violent or abusive relationship? Are you a victim of rape or sexual assult? Call [facility] ([place]) 24 hour Crisis Hotline: 619.208.1062 or 381-092-3688. MANUAL Your Guide to a Healthy manual is now on-line. Visit [email or web address] to download your free copy documented in this encounter [facility] 01-14-2023 Miscellaneous Notes Initial Risk Assessment Form submitted on January 14, 2023 Dunia Gonzales RN documented in this encounter [facility] 01-12-2023 Note HNO ID: [id number] Author: Yudy Adame APRN.CHASE Service: ? Author Type: Pusher Operator Type: Progress Notes Filed: 01/12/2023 9:23 AM Note Text: INITIAL OB ASSESSMENT OB Provider: Yudy Adame APRN CNM HPI: Shari is a 27 year old White Female here to establish Obstetrical Care. Patient's last menstrual period was 09/03/2022 (exact date). from OB Dating Form. Cycles regular was unplanned but accepted Complaints: had some rectal bleeding after hard BM's OB History T1 L1 SAB0 IAB0 Ectopic0 Multiple0 Live Births1 # 1 - Date: 05/19/22, Sex: Female, Weight: 5 lb 12 oz (2.608 kg), GA: 38w4d, Delivery: Vaginal, Spontaneous, Apgar1: 8, Apgar5: 9, Living: Living, Comments: induction for IUGR, EBL 400mL, 1st degree perineal laceration # 2 - Date: None, Sex: None, Weight: None, GA: None, Delivery: None, Apgar1: None, Apgar5: None, Living: None, Comments: None Previous history: Prior : never History of 4th degree laceration: No History of shoulder dystocia: No History of Hypertensive disorders including pre-eclampsia, chronic hypertension or gestational hypertension: No History of gestational diabetes: No Patient's Risk Screening for delivery: Have you had a prior kevin between 20w and 36w6d?: No MEDICAL/PSYCHOSOCIAL HISTORY: History of hemorrhage or bleeding concerns: No Thyroid Disease: No History of chronic hypertension: No History of pre-existing diabetes: No No results found for: ABORHD No weight on file for this encounter. History of abnormal pap: No Prior treatment for cervical dysplasia: none. History of STDs: None Tobacco use: No Caffeine use: Yes, iced coffees occasionally Drug use: No Alcohol use: No Multivitamin with Folic acid: Yes Judaism or heritage: No Would refuse blood transfusion if medically necessary: No Are you currently employed? Yes, Occupation: [employer] Do you have any history of depression, anxiety, PTSD, eating disorders or other mood problems: Yes Do you have any safety concerns or history of traumatic events that you would like to discuss with your provider: No How often does this describe you? I don't have enough money to pay my bills: Never Within the past 12 months, have you worried that your food would run out before you had money to buy more: Never In the past 12 months, has lack of reliable transportation kept you from going to medical appointments or work, or from keeping things needed for daily living: Never In the past 12 months, have you had any concerns about having a place to live, or about the condition or quality of your housing: Never Are there any cultural or spiritual needs we should be aware of: No Depression: denies symptoms of depression. OB Depression and Anxiety Screening- This Encounter (since 01/11/2023) Over the past 2 weeks have you felt down, depressed, or hopeless? Negative Over the past two weeks, have you felt little interest or pleasure in doing things?? 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 Current Outpatient Medications Medication Sig Dispense Refill prental multivitamin 27 mg iron- 800 mcg tablet Take 1 tablet by mouth once daily. Ferrous Sulfate (SLOW FE) 142 mg (45 mg iron) TbER Take by mouth. (Patient not taking: Reported on 12/23/2022) No current facility-administered medications for this visit. Allergies As of Date: 01/12/2023 Allergen Noted Reaction SEASONAL ALLERGIES 01/02/2014 Other: See Comments BEES 04/07/2005 Swelling Fully Assessed 01/12/2023 Does patient have penicillin allergy: No REVIEW OF SYSTEMS: GENERAL: Negative for: Fever or Chills HEENT: Negative for: Headache, Impaired Vision, Ringing in Ears, Nosebleeds NECK: Negative for: Swelling, Pain, Stiffness RESPIRATORY: Negative for: Cough, Shortness of breath, Wheezing GASTROINTESTINAL: Negative for: Heartburn, Constipation, Diarrhea, Blood in stool, Vomiting (more content not included)... [facility] 01-12-2023 Miscellaneous Notes Patient seen for NOB. See progress note. Yudy Adame APRN.CNM documented in this encounter [facility] 01-12-2023 History of Presen t illness Narrative Images from the original note were not included. INITIAL OB ASSESSMENT OB Provider: Yudy Adame APRN CNM HPI: Shari is a 27 year old White Female here to establish Obstetrical Care. Patient's last menstrual period was 09/03/2022 (exact date). from OB Dating Form. Cycles regular was unplanned but accepted Complaints: had some rectal bleeding after hard BM's OB History T1 L1 SAB0 IAB0 Ectopic0 Multiple0 Live Births1 # 1 - Date: 05/19/22, Sex: Female, Weight: 5 lb 12 oz (2.608 kg), GA: 38w4d, Delivery: Vaginal, Spontaneous, Apgar1: 8, Apgar5: 9, Living: Living, Comments: induction for IUGR, EBL 400mL, 1st degree perineal laceration # 2 - Date: None, Sex: None, Weight: None, GA: None, Delivery: None, Apgar1: None, Apgar5: None, Living: None, Comments: None Previous history: Prior : never History of 4th degree laceration: No History of shoulder dystocia: No History of Hypertensive disorders including pre-eclampsia, chronic hypertension or gestational hypertension: No History of gestational diabetes: No Patient's Risk Screening for delivery: Have you had a prior kevin between 20w and 36w6d?: No MEDICAL/PSYCHOSOCIAL HISTORY: History of hemorrhage or bleeding concerns: No Thyroid Disease: No History of chronic hypertension: No History of pre-existing diabetes: No No results found for: ABORHD No weight on file for this encounter. History of abnormal pap: No Prior treatment for cervical dysplasia: none. History of STDs: None Tobacco use: No Caffeine use: Yes, iced coffees occasionally Drug use: No Alcohol use: No Multivitamin with Folic acid: Yes Judaism or heritage: No Would refuse blood transfusion if medically necessary: No Are you currently employed? Yes, Occupation: [employer] Do you have any history of depression, anxiety, PTSD, eating disorders or other mood problems: Yes Do you have any safety concerns or history of traumatic events that you would like to discuss with your provider: No How often does this describe you? I don't have enough money to pay my bills: Never Within the past 12 months, have you worried that your food would run out before you had money to buy more: Never In the past 12 months, has lack of reliable transportation kept you from going to medical appointments or work, or from keeping things needed for daily living: Never In the past 12 months, have you had any concerns about having a place to live, or about the condition or quality of your housing: Never Are there any cultural or spiritual needs we should be aware of: No Depression: denies symptoms of depression. OB Depression and Anxiety Screening- This Encounter (since 01/11/2023) Over the past 2 weeks have you felt down, depressed, or hopeless? Negative Over the past two weeks, have you felt little interest or pleasure in doing things? 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 Current Outpatient Medications Medication Sig Dispense Refill prental multivitamin 27 mg iron- 800 mcg tablet Take 1 tablet by mouth once daily. Ferrous Sulfate (SLOW FE) 142 mg (45 mg iron) TbER Take by mouth. (Patient not taking: Reported on 12/23/2022) No current facility-administered medications for this visit. Allergies As of Date: 01/12/2023 Allergen Noted Reaction SEASONAL ALLERGIES 01/02/2014 Other: See Comments BEES 04/07/2005 Swelling Fully Assessed 01/12/2023 Does patient have penicillin allergy: No REVIEW OF SYSTEMS: GENERAL: Negative for: Fever or Chills HEENT: Negative for: Headache, Impaired Vision, Ringing in Ears, Nosebleeds NECK: Negative for: Swelling, Pain, Stiffness RESPIRATORY: Negative for: Cough, Shortness of breath, Wheezing GASTROINTESTINAL: Negative for: Heartburn, Constipation, Diarrhea, Blood in stool, Vomiting MUSCULOSKELETAL: Negative for: Muscle or joint pain, stiffness, Joint swelling NEUROLOGIC/PSYCHIATRIC: Negative for: Weakness, Paralysis, Numbness, Tingling, Tremor, Anxiety, Depression, Memory loss . Hx of antidepressant age 19 - stopped taking and no current treatment SKIN: Negative for: Rash, Itching GENITOURINARY: Negative for: vaginal itching, vaginal discharge, hematuria or dysuria and Positive for: urinary frequency PHYSICAL EXAM: BP 110/62 Ht 5' 7 (1.70m) Wt 152 lb 3.2 oz (69.0kg) LMP 09/03/2022 BMI 23.83 kg/(m^2). GENERAL: pleasant in no apparent distress DERMATOLOGY: Normal and without lesions NECK: Supple and full range of motion CHEST: Normal inspiratory effort BREAST: soft, non-tender, symmetric, no dominant mass, normal nipple-areolar complex, no lymphadenopathy, and no nipple discharge ABDOMEN: soft, non-tender, and no masses NEURO: alert and oriented x3,exam grossly non-focal PELVIS: External genitalia normal without lesions. Perineal body intact. No vaginal or cervical lesions. Cervix closed. No adnexal masses or tenderness. Clinical Pelvimetry: Pelvimetry clinically assessed as adequate Limited OB ultrasound exam: not performed OB Risk Screening: Completed, positive findings include: Patient answered 'Yes' to Partner with Herpes SBIRT Shari Kwan was given the 4P's screening tool. Shari answered as follows: OB Opioid Screening - Last Recorded (since 04/17/2022) Did any of your parents have a problem with alcohol or other drug use? Yes father-drugs Does your partner have a problem with alcohol or other drug use? No In the past, have you had difficulties in your life because of alcohol or other drugs, including prescription medications? Yes Issues with ETOH in past -none since 7 years In the past month have you drunk any alcohol or used other drugs? No Are you taking medication for pain during the either prescribed or not? No Based on the screen and further questions, she is considered at Low risk due to:Low level of use stopped prior to or immediately upon known . Positive reinforcement of current behavior. Yudy Adame APRN.CNM ASSESSMENT/PLAN: 1. 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 Late care affecting , antepartum - ICD9: V23.7, ICD10: O09.30 3. IUGR (intrauterine growth restriction) in prior , - ICD9: V23.49, ICD10: O09.299 4. Short interval between pregnancies affecting , antepartum - ICD9: V23.89, ICD10: O09.899 PLAN: 1) Patient oriented to practice. Discussed nutrition, folic acid supplementation, dietary guidelines, exercise, smoking, alcohol, caffeine, and drug use. Discussed gestational weight gain guidelines. Discussed aneuploidy and carrier screening. Regarding aneuploidy screening, nuchal translucency/first trimester early anatomy ultrasound and NIPT were discussed. Regarding carrier screening, the myriad screen was discussed. The risks/benefits and limitations of NIPT/aneuploidy screening were reviewed including the potential for false negative and false positive results. We discussed the availability of professional-society guided carrier screening and reviewed the conditions screened and limitations of screening. The availability of genetic counseling was reviewed. Information on aneuploidy/carrier screening was provided. The patient chooses: Aneuploidy screening: declines screening Reviewed midwifery and stripe marker services that are available. 2) PNL today 3) PAP completed - unsure of last one done 4) GC/CH completed 5) ASA daily Follow up in 1 week for anatomy US and 4 weeks SITA Yudy Adame APRN.CNM documented in this encounter [facility] 01-12-2023 Instructions Zi Pineda Cma - 01/12/2023 8:41 AM EDT Please select the following link to access the [facility] Your Guide to a Healthy . [email or web address] documented in this encounter [facility] 12-28-2022 Miscellaneous Notes S: Shari Kwan is a 27 year old female who presents at 16.4 weeks gestation for a consult . Has not completed NOB or ultrasound to date. Office unable to get a hold of patient to schedule. Has 7 month old daughter. She denies any concerns. Positive movement starting last week. Occasional nausea without emesis. Denies headache, visual changes, chest pain, shortness of breath, vaginal bleeding, leakage of fluid, or dysuria. O: See flow sheet Gen: No apparent distress Abd: Gravid, non tender FHT via doppler- 148 bpm ASSESSMENT/PLAN: 1. 16 weeks gestation of - ICD9: V22.2, ICD10: Z3A.16 (primary diagnosis) 2. Late care affecting , antepartum - ICD9: V23.7, ICD10: O09.30 3. Short interval between pregnancies affecting , antepartum - ICD9: V23.89, ICD10: O09.899 4. Supervision of high risk in third trimester - ICD9: V23.9, ICD10: O09.93 5. History of prior with IUGR - ICD9: V13.29, ICD10: Z87.59 - URINE OB DIP B/O - OBSTETRIC ULTRASOUND WHI- dating vs. Anatomy - Declines aneuploidy screening - Taking vitamin - Start ASA daily - Will need all labs completed at next visit RTO- NOB and OB US Yudy Aadme APRN.CNM documented in this encounter [facility] 12-28-2022 Instructions Zi Pineda Cma - 12/28/2022 9:30 AM EDT SEQUENTIAL SCREENINGS The [facility] offers sequential screenings for women who are interested in screenings for chromosomal abnormalities and certain defects during a . The sequential screen combines ultrasound and blood tests to determine the risk of chromosomal abnormalities, including Down's Syndrome (Trisomy 21) and Trisomy 18, as well as open neural tube defects including spina bifida. Ultrasound examination is performed between 11 weeks and 13 weeks gestational age. Blood tests are drawn after the ultrasound and again later in the between 15 and 21 weeks gestational age. Please let your physician know if you are interested in this testing. It will require an appointment with our scheme technician. This is not an ultrasound performed by a physician in our office during a routine visit. SIGNS AND SYMPTOMS OF LABOR 1. Contractions every 10 minutes or more often 2. Clear, pink, or brownish fluid (water) leaking from vagina 3. Feeling that baby is pushing down, pressure 4. Low, dull backache 5. Cramps that feel like a period 6. Cramps with or without diarrhea If you notice any of the above symptoms, contact our office at [phone] and ask to speak with a nurse. After hours, you can call doctors registry at [phone] OR call [facility] at [phone] and ask to have the doctor concrete analyst paged. If you consider this an emergency, dial 9-1-3 or go to your nearest emergency department. NEED HELP? Are you dealing with a violent or abusive relationship? Are you a victim of rape or sexual assult? Call [facility] [place] ([place]) 24 hour Crisis Hotline: 405.577.7822 or 920-060-1669. MANUAL Your Guide to a Healthy manual is now on-line. Visit [email or web address] [email or web address] to download your free copy documented in this encounter [facility] 12-23-2022 Miscellaneous Notes Left message for patient to call office. Our first US opening is January 04. Dunia Suazo RN Yes, Order signed. Thank you. Yudy Adame APRN.CNM Patient here for prenew OB telephone visit. She is approximately 15 weeks 6 days by dates. She has a new OB appointment with Yudy on January 12. Do you wish to order an ultrasound prior to the new OB appointment. Please advise documented in this encounter [facility] 12-23-2022 Miscellaneous Notes DISTANCE HEALTH VISIT This Team Access Model visit is a phone encounter. It required patient-provider interaction for the medical decision making as documented below. I have communicated my name and active licensure. The patient's identity and physical location were verified at the time of this visit. Father of the baby is the father of her other child. Patient delivered her last child on May 19, 2022. She is 15 weeks 6 days by dates. She states she had a positive test the end of September or beginning of October. She denies any movement. States she just got busy working and adjusting to a new baby and time escaped her with scheduling an appointment for this . See phone note dated December 23. Has a history of IUGR with her previous . Pt has a history of depression diagnosed in 2014. She h took medication for 3 months in 2014. She states that she did have depression. Discussed increased risks of depression during and and importance of reporting the development or worsening of symptoms should they occur. Pt denies ever having any suicidal thoughts or tendencies or thoughts of hurting others. Patient was exposed to herpes her last . Denies her having any breaks herself. Patient states she did use marijuana her last but stopped during the third trimester. She denies any marijuana use this . I have discussed with her the risks of marijuana use during and advised her to continue not using. Patient desires aneuploidy screening. Contact information for [facility] given to patient to check on insurance coverage. Patient finds genetic carrier screening testing.Yolanda Tran RN TKRN documented in this encounter [facility] 12-23-2022 Note HNO ID: [id number] Author: Yolanda Tran RN Service: ? Author Type: ? Type: Progress Notes Filed: 12/23/2022 1:41 PM Note Text: INITIAL OB ASSESSMENT OB Provider: Yolanda Tran RN HPI: Shari is a 27 year old White Female here to establish Obstetrical Care. Patient's last menstrual period was 09/03/2022 (exact date). from OB Dating Form. Cycles regular was unplanned but accepted Complaints: had some rectal bleeding after hard BM's OB History T1 L1 SAB0 IAB0 Ectopic0 Multiple0 Live Births1 # 1 - Date: 05/19/22, Sex: Female, Weight: 5 lb 12 oz (2.608 kg), GA: 38w4d, Delivery: Vaginal, Spontaneous, Apgar1: 8, Apgar5: 9, Living: Living, Comments: induction for IUGR, EBL 400mL, 1st degree perineal laceration # 2 - Date: None, Sex: None, Weight: None, GA: None, Delivery: None, Apgar1: None, Apgar5: None, Living: None, Comments: None Previous history: Prior : never History of 4th degree laceration: No History of shoulder dystocia: No History of Hypertensive disorders including pre-eclampsia, chronic hypertension or gestational hypertension: No History of gestational diabetes: No Patient's Risk Screening for delivery: Have you had a prior kevin between 20w and 36w6d?: No MEDICAL/PSYCHOSOCIAL HISTORY: History of hemorrhage or bleeding concerns: No Thyroid Disease: No History of chronic hypertension: No History of pre-existing diabetes: No No results found for: ABORHD No weight on file for this encounter. History of abnormal pap: No Prior treatment for cervical dysplasia: none. History of STDs: None Tobacco use: No Caffeine use: Yes, iced coffees occasionally Drug use: No Alcohol use: No Multivitamin with Folic acid: Yes Judaism or heritage: No Would refuse blood transfusion if medically necessary: No Are you currently employed? Yes, Occupation: [employer] Do you have any history of depression, anxiety, PTSD, eating disorders or other mood problems: Yes Do you have any safety concerns or history of traumatic events that you would like to discuss with your provider: No How often does this describe you? I don't have enough money to pay my bills: Never Within the past 12 months, have you worried that your food would run out before you had money to buy more: Never In the past 12 months, has lack of reliable transportation kept you from going to medical appointments or work, or from keeping things needed for daily living: Never In the past 12 months, have you had any concerns about having a place to live, or about the condition or quality of your housing: Never Are there any cultural or spiritual needs we should be aware of: No Depression: denies, admits to symptoms of depression. 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 No pertinent surgical history. Current Outpatient Medications Medication Sig Dispense Refill prental multivitamin 27 mg iron- 800 mcg tablet Take 1 tablet by mouth once daily. Ferrous Sulfate (SLOW FE) 142 mg (45 mg iron) TbER Take by mouth. (Patient not taking: Reported on 12/23/2022) No current facility-administered medications for this visit. Allergies As of Date: 12/23/2022 Allergen Noted Reaction SEASONAL ALLERGIES 01/02/2014 Other: See Comments BEES 04/07/2005 Swelling Fully Assessed 12/23/2022 Does patient have penicillin allergy: No [facility] 12-23-2022 History of Presen t illness Narrative INITIAL OB ASSESSMENT OB Provider: Yolanda Tran RN HPI: Shari is a 27 year old White Female here to establish Obstetrical Care. Patient's last menstrual period was 09/03/2022 (exact date). from OB Dating Form. Cycles regular was unplanned but accepted Complaints: had some rectal bleeding after hard BM's OB History T1 L1 SAB0 IAB0 Ectopic0 Multiple0 Live Births1 # 1 - Date: 05/19/22, Sex: Female, Weight: 5 lb 12 oz (2.608 kg), GA: 38w4d, Delivery: Vaginal, Spontaneous, Apgar1: 8, Apgar5: 9, Living: Living, Comments: induction for IUGR, EBL 400mL, 1st degree perineal laceration # 2 - Date: None, Sex: None, Weight: None, GA: None, Delivery: None, Apgar1: None, Apgar5: None, Living: None, Comments: None Previous history: Prior : never History of 4th degree laceration: No History of shoulder dystocia: No History of Hypertensive disorders including pre-eclampsia, chronic hypertension or gestational hypertension: No History of gestational diabetes: No Patient's Risk Screening for delivery: Have you had a prior kevin between 20w and 36w6d?: No MEDICAL/PSYCHOSOCIAL HISTORY: History of hemorrhage or bleeding concerns: No Thyroid Disease: No History of chronic hypertension: No History of pre-existing diabetes: No No results found for: ABORHD No weight on file for this encounter. History of abnormal pap: No Prior treatment for cervical dysplasia: none. History of STDs: None Tobacco use: No Caffeine use: Yes, iced coffees occasionally Drug use: No Alcohol use: No Multivitamin with Folic acid: Yes Judaism or heritage: No Would refuse blood transfusion if medically necessary: No Are you currently employed? Yes, Occupation: [employer] Do you have any history of depression, anxiety, PTSD, eating disorders or other mood problems: Yes Do you have any safety concerns or history of traumatic events that you would like to discuss with your provider: No How often does this describe you? I don't have enough money to pay my bills: Never Within the past 12 months, have you worried that your food would run out before you had money to buy more: Never In the past 12 months, has lack of reliable transportation kept you from going to medical appointments or work, or from keeping things needed for daily living: Never In the past 12 months, have you had any concerns about having a place to live, or about the condition or quality of your housing: Never Are there any cultural or spiritual needs we should be aware of: No Depression: denies, admits to symptoms of depression. 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 No pertinent surgical history. Current Outpatient Medications Medication Sig Dispense Refill prental multivitamin 27 mg iron- 800 mcg tablet Take 1 tablet by mouth once daily. Ferrous Sulfate (SLOW FE) 142 mg (45 mg iron) TbER Take by mouth. (Patient not taking: Reported on 12/23/2022) No current facility-administered medications for this visit. Allergies As of Date: 12/23/2022 Allergen Noted Reaction SEASONAL ALLERGIES 01/02/2014 Other: See Comments BEES 04/07/2005 Swelling Fully Assessed 12/23/2022 Does patient have penicillin allergy: No documented in this encounter [facility] 12-18-2022 Miscellaneous Notes PNOB scheduled. She has had no prior care this . Jessica Bell RN Left message for patient to return phone call. Patient has an appointment with Yudy Adame for NOB appointment. Please schedule PNOB appointment at request of CP. documented in this encounter [facility] 05-25-2022 History of Presen t illness Narrative Patient delivered via by Lamberto on 05/19/22 at [facility]. See OB history. Jessica Bell RN documented in this encounter [facility] 05-15-2022 Miscellaneous Notes RADHAS: Shari Kwan is a 26 year old female who presents at 05/29/2022, by Last Menstrual Period for a routine visit. Denies headache, visual changes, chest pain, shortness of breath, vaginal bleeding, leakage of fluid, or dysuria. Feeling well, no complaints. No vaping or tobacco use. Denies any marijuana use in last use in March O: See flow sheet Gen: No apparent distress Abd: Gravid, nontender BPP 12/15, LILIA 19 ASSESSMENT/PLAN: 1. 38 weeks gestation of P: 1) PTL precautions reviewed and when to call 2) RTO 05/19 for growth US but may just go to induction. 3) BPP and NST for twice weekly testing 4) GBS today 5) If EFW remains 3-10%ile then delivery is recommended 38-39 weeks unless indicated earlier based on maternal or testing. Will await results and discuss with physician. Reviewed likely induction in the next few days. Discussed plan with cervical ripening and also pitocin. Questions answered. 6) Poor care and missed visits. Farhan Pickard APRN.CNM documented in this encounter [facility] 05-15-2022 Instructions Farhan Pickard APRN.CNM - 05/15/2022 9:19 AM EST Inducing labor -- The optimal time to deliver a baby in a woman who is postterm is sometimes hard to determine. The health care provider and woman must consider the risks and benefits of continuing the , the results of testing, and the condition of the cervix (the lower part of the uterus, which opens into the vagina). Normally, the cervix begins to dilate (open) and efface (thin) towards the end of a woman's . Inducing labor is more likely to take a long time in women whose cervix is not dilated or thinned. Most health care providers will induce labor if it does not begin spontaneously by 41 to 42 weeks of gestation. For a woman whose cervix is not favorable, labor can be induced with a medication applied directly to the cervix or in the vagina, which causes the cervix to soften and dilate. Sometimes medication is given by mouth. Cervical change may also be accomplished using mechanical methods such as a Ortiz catheter bulb. Most women, including those whose cervix is favorable, will also require an intravenous medication (oxytocin), which stimulates the uterus to contract; uterine contractions further stimulate cervical dilation and effacement. If induction of labor does not completely dilate and efface the cervix, or if complications develop that require the baby to be delivered quickly, a delivery is usually performed. Some patients may choose to have a delivery, especially if the fetus is very large (eg, >5000 grams or 11 pounds), or they have a history of previous delivery, or for reasons of personal choice. It is important to understand the risks and benefits of delivery and to discuss these issues with the physician who will be performing the procedure. SIGNS AND SYMPTOMS OF LABOR 1. Contractions every 10 minutes or more often 2. Clear, pink, or brownish fluid (water) leaking from vagina 3. Feeling that baby is pushing down, pressure 4. Low, dull backache 5. Cramps that feel like a period 6. Cramps with or without diarrhea If you notice any of the above symptoms, contact our office at [phone] and ask to speak with a nurse. After hours, you can call doctors registry at [phone] OR call [facility] at [phone] and ask to have the doctor concrete analyst paged. If you consider this an emergency, dial 5-4-0 or go to your nearest emergency department. NEED HELP? Are you dealing with a violent or abusive relationship? Are you a victim of rape or sexual assult? Call [facility] ([facility] 24 hour Crisis Hotline: 153.368.8811 or 766-339-5236. MANUAL Your Guide to a Healthy manual is now on-line. Visit [email or web address] [email or web address] to download your free copy documented in this encounter [facility] 05-07-2022 Miscellaneous Notes Pt assisted in scheduling weekly appointments for the next 2 weeks. Makeda Hopson LPN Message left asking pt to contact the office for results and instructions. Makeda Hopson LPN ----- Message from Pb Edgar MD sent at 05/06/2022 7:24 AM EST ----- Needs weekly BPP and weekly NSTs. Please see that NSTs are scheduled with her routine OB visits weekly until delivery. documented in this encounter [facility] 04-28-2022 Miscellaneous Notes Addended by: PB EDGAR on: 04/28/2022 12:24 PM Modules accepted: Orders Addended by: PB EDGAR on: 04/28/2022 11:17 AM Modules accepted: Orders Addended by: JESSICA BELL RN on: 04/28/2022 11:14 AM Modules accepted: Orders DM-Pt doing well. Denies vaginal Bleeding, Leaking fluid, or regular Contractions. Pt reports good movement Physical Exam: Gen: female in no apparent distress Abd: soft, Gravid. Non tender to palpation. See flow sheet A/P: @ 35.4 weeks 1) NEEDS GROWTH US today- FH<Dates 2) gbs next visit 3) Kick counts 4) RTO 1 week 5) continue IRON documented in this encounter [facility] 04-28-2022 Instructions Niki Kwan Ma - 04/28/2022 10:49 AM EST SEQUENTIAL SCREENINGS The [facility] offers sequential screenings for women who are interested in screenings for chromosomal abnormalities and certain defects during a . The sequential screen combines ultrasound and blood tests to determine the risk of chromosomal abnormalities, including Down's Syndrome (Trisomy 21) and Trisomy 18, as well as open neural tube defects including spina bifida. Ultrasound examination is performed between 11 weeks and 13 weeks gestational age. Blood tests are drawn after the ultrasound and again later in the between 15 and 21 weeks gestational age. Please let your physician know if you are interested in this testing. It will require an appointment with our scheme technician. This is not an ultrasound performed by a physician in our office during a routine visit. SIGNS AND SYMPTOMS OF LABOR 1. Contractions every 10 minutes or more often 2. Clear, pink, or brownish fluid (water) leaking from vagina 3. Feeling that baby is pushing down, pressure 4. Low, dull backache 5. Cramps that feel like a period 6. Cramps with or without diarrhea If you notice any of the above symptoms, contact our office at [phone] and ask to speak with a nurse. After hours, you can call doctors registry at [phone] OR call [facility] at [phone] and ask to have the doctor concrete analyst paged. If you consider this an emergency, dial 9-0-5 or go to your nearest emergency department. NEED HELP? Are you dealing with a violent or abusive relationship? Are you a victim of rape or sexual assult? Call [facility] ([facility] 24 hour Crisis Hotline: 359.982.1473 or 995-078-2629. MANUAL Your Guide to a Healthy manual is now on-line. Visit [email or web address] to download your free copy documented in this encounter [facility] 04-17-2022 Miscellaneous Notes Pt viewed message. Makeda Hopson LPN Voicemail full, unable to leave message. Detailed Blockboardhart message sent to pt. Please leave phone note open until pt has seen message. Makeda Hopson LPN Attempted to leave message but voicemailbox full. Please attempt to call patient back later ----- Message from Pb Edgar MD sent at 04/15/2022 10:05 AM EST ----- Results reviewed. Please Place copy in OB chart. Notify patient of anemia in . Recommend Ferrous sulfate 325mg daily. Will recheck CBC in 4 weeks. documented in this encounter [facility] documented as of this encounter (statuses as of 02/10/2023) [facility] History of Past illness Narrative* Problem Noted Date Diagnosed Date Resolved Date Anemia during in third trimester 04/15/2022 02/09/2023 Overview: 04/15/22: start iron. Pb Guzman MD Thrombocytopenia affecting 03/30/2022 02/09/2023 Limited care in third trimester 03/30/2022 02/09/2023 with care elsewhere in third trimester 03/30/2022 02/09/2023 Supervision of high risk pre gnancy in third trimester 03/30/2022 02/09/2023 with care elsewhere, antepartum 03/24/2022 02/09/2023 Overview: 03/24/2022atient is transferring care at 30 weeks from [place]. She states she signed a release of records form to have her records sent here. She states that she was last seen about 2 months ago. She states it has been very difficult to get appointments canceled and transfer care. TKRN documented as of this encounter (statuses as of 02/17/2023) [facility] History of Past illness Narrative* Problem Noted Date Diagnosed Date Resolved Date Anemia during in third trimester 04/15/2022 02/09/2023 Overview: 04/15/22: start iron. Pb Guzman MD Thrombocytopenia affecting 03/30/2022 02/09/2023 Limited care in third trimester 03/30/2022 02/09/2023 with care elsewhere in third trimester 03/30/2022 02/09/2023 Supervision of high risk pre gnancy in third trimester 03/30/2022 02/09/2023 with care elsewhere, antepartum 03/24/2022 02/09/2023 Overview: 03/24/2022atient is transferring care at 30 weeks from [place]. She states she signed a release of records form to have her records sent here. She states that she was last seen about 2 months ago. She states it has been very difficult to get appointments canceled and transfer care. TKRN documented as of this encounter (statuses as of 03/17/2023) [facility] History of Past illness Narrative* Problem Noted Date Diagnosed Date Resolved Date Anemia during in third trimester 04/15/2022 02/09/2023 Overview: 04/15/22: start iron. Pb Guzman MD Thrombocytopenia affecting 03/30/2022 02/09/2023 Limited care in third trimester 03/30/2022 02/09/2023 with care elsewhere in third trimester 03/30/2022 02/09/2023 Supervision of high risk pre gnancy in third trimester 03/30/2022 02/09/2023 with care elsewhere, antepartum 03/24/2022 02/09/2023 Overview: 03/24/2022atieileen is transferring care at 30 weeks from [place]. She states she signed a release of records form to have her records sent here. She states that she was last seen about 2 months ago. She states it has been very difficult to get appointments canceled and transfer care. TKRN documented as of this encounter (statuses as of 03/23/2023) [facility] History of Past illness Narrative* Problem Noted Date Diagnosed Date Resolved Date Anemia during in third trimester 04/15/2022 02/09/2023 Overview: 04/15/22: start iron. Pb Guzman MD Thrombocytopenia affecting 03/30/2022 02/09/2023 Limited care in third trimester 03/30/2022 02/09/2023 with care elsewhere in third trimester 03/30/2022 02/09/2023 Supervision of high risk pre gnancy in third trimester 03/30/2022 02/09/2023 with care elsewhere, antepartum 03/24/2022 02/09/2023 Overview: 03/24/2022atieileen is transferring care at 30 weeks from [place]. She states she signed a release of records form to have her records sent here. She states that she was last seen about 2 months ago. She states it has been very difficult to get appointments canceled and transfer care. TKRN documented as of this encounter (statuses as of 03/31/2023) [facility] History of Past illness Narrative* Problem Noted Date Diagnosed Date Resolved Date Anemia during in third trimester 04/15/2022 02/09/2023 Overview: 04/15/22: start iron. Pb Guzman MD Thrombocytopenia affecting 03/30/2022 02/09/2023 Limited care in third trimester 03/30/2022 02/09/2023 with care elsewhere in third trimester 03/30/2022 02/09/2023 Supervision of high risk pre gnancy in third trimester 03/30/2022 02/09/2023 with care elsewhere, antepartum 03/24/2022 02/09/2023 Overview: 03/24/2022azeb is transferring care at 30 weeks from [place]. She states she signed a release of records form to have her records sent here. She states that she was last seen about 2 months ago. She states it has been very difficult to get appointments canceled and transfer care. TKRN documented as of this encounter (statuses as of 03/31/2023) [facility]12-07-2022 History of Past illness Narrative* Problem Noted Date Diagnosed Date Resolved Date Anemia during in third trimester 04/15/2022 02/09/2023 Overview: 04/15/22: start iron. Pb Guzman MD Thrombocytopenia affecting 03/30/2022 02/09/2023 Limited care in third trimester 03/30/2022 02/09/2023 with care elsewhere in third trimester 03/30/2022 02/09/2023 Supervision of high risk pre gnancy in third trimester 03/30/2022 02/09/2023 with care elsewhere, antepartum 03/24/2022 02/09/2023 Overview: 03/24/2022azeb is transferring care at 30 weeks from [place]. She states she signed a release of records form to have her records sent here. She states that she was last seen about 2 months ago. She states it has been very difficult to get appointments canceled and transfer care. TKRN documented as of this encounter (statuses as of 04/14/2023) [facility]12-07-[facility] History of Past illness Narrative* Problem Noted Date Diagnosed Date Resolved Date Anemia during in third trimester 04/15/2022 02/09/2023 Overview: 04/15/22: start iron. Pb Guzman MD Thrombocytopenia affecting 03/30/2022 02/09/2023 Limited care in third trimester 03/30/2022 02/09/2023 with care elsewhere in third trimester 03/30/2022 02/09/2023 Supervision of high risk pre gnancy in third trimester 03/30/2022 02/09/2023 with care elsewhere, antepartum 03/24/2022 02/09/2023 Overview: 03/24/2022atient is transferring care at 30 weeks from [place]. She states she signed a release of records form to have her records sent here. She states that she was last seen about 2 months ago. She states it has been very difficult to get appointments canceled and transfer care. TKRN documented as of this encounter (statuses as of 04/15/2023) [facility]12-06-2022 Miscellaneous Notes* Quick Notes - Sudha Cadena APRN.CNP - 04/14/2022 11:05 AM EST RM-Pt doing well. Denies vaginal Bleeding, Leaking fluid, or regular Contractions. Pt reports good movement. GIRL Discuss the importance of getting the US done due to growth discrepancy b/t weeks and measurements. Physical Exam: Gen: no apparent distress Abd: soft, Gravid. Non tender to palpation. See flow sheet Pt will stop done and get her labs done today and schedule US RTO 2 weeks Sudha Cadena APRN.ALBERT documented in [facility] Instructions* Patient Instructions* Trixie Rose MA - 04/14/2022 10:34 AM EST SEQUENTIAL SCREENINGS The [facility] offers sequential screenings for women who are interested in screenings for chromosomal abnormalities and certain defects during a . The sequential screen combinesultrasound and blood tests to determine the risk of chromosomal abnormalities, including Down's Syndrome (Trisomy 21) and Trisomy 18, as well as open neural tube defects including spina bifida. Ultrasound examination is performed between 11 weeks and 13 weeks gestational age. Blood tests are drawn after the ultrasound and again later in the between 15 and 21 weeks gestational age. Please let your physician know if you are interested in this testing. It will require an appointment withour scheme technician. This is not an ultrasound performed by a physician in our office during a routine visit. SIGNS AND SYMPTOMS OF LABOR 1. Contractions every 10 minutes or more often 2. Clear, pink, or brownish fluid (water) leaking from vagina 3. Feeling that baby is pushing down, pressure 4. Low, dull backache 5. Cramps that feel like a period 6. Cramps with or without diarrhea If you notice any of the above symptoms, contact our office at [phone] and ask to speak with anurse. After hours, you can call doctors registry at [phone] OR call [facility] at [phone] ask to have the doctor concrete analyst paged. If you consider this an emergency, dial 9-5-8 or go to your nearest emergency department. NEED HELP? Are you dealing with a violent or abusive relationship? Are you a victim of rape or sexual assult? Call [facility] ([place]) 24 hour Crisis Hotline: 900.830.2723 or 824-614-5971. MANUAL Your Guide to a Healthy manual is now on-line. Visit [email or web address] to download your free copy documented [facility] Miscellaneous Notes* Quick Notes - Pb Edgar MD - 03/30/2022 11:05 AM EST DM- new ob. [place] has not been seen in over 2mo. Declines flu and tdap. Reportsuses marijuana every 3 days-she has no plans to stop. FH<dates- growth us ordered today. Pt thinks she had aneuploidy screening performed- MR release signed. 28 week labs ordered and plans to do them today. RTO 2 wks. Pb Guzman MD documented in this encounterC[facility] Instructions* Patient Instructions* Niki Kwan Ma - 03/30/2022 10:32 AM EST Please select the following link to access the [facility] Your Guide to a Healthy . [email or web address] documented in this encounterC[facility] History of Present illness Narrative* Pb Edgar MD - 03/30/2022 10:31 AM EST Images from the original note were not included. INITIAL OB ASSESSMENT OB Provider: Pb Edgar MD HPI: Shari Kwan is a 26 year old female here to establish Obstetrical Care. Patient's last menstrual period was 08/22/2021 (approximate). from OB Dating Form. Cycle length: 28 days Complaints: None was unplanned but accepted. OB History T0 L0 SAB0 IAB0 Ectopic0 Multiple0 Live Births0 Prior : never History of 4th degree laceration: No Patient's Risk Screening for delivery: History of abnormal pap: No Prior treatment for cervical dysplasia: none. History of STDs: None Tobacco use: yes- vaping occasional Caffeine use: Yes Drug use: Yes Alcohol use: No Multivitamin with Folic acid: Yes Occupation: no Judaism or heritage: No Would refuse blood transfusion if medically necessary: No BMI 27.63 kg/(m^2) Patient BMI over 30? No Marital Status:Committed relationship Partner: Name: Cosme Ellison Age: 26 Occupation: unemployed Gender: male History of STDs: None PAST MEDICAL HISTORY Diagnosis Date depression/anxiety PMH - PAST MEDICAL HISTORY OF Color Vision - Normal Vasovagal syncope No past surgical history on file. Current Outpatient Medications on File Prior to Visit Medication Sig prental multivitamin 27 mg iron- 800 mcg tablet Take 1 tablet by mouth once daily. Levonorgestrel-Ethinyl Estrad (LEVORA-28) 0.15-0.03 mg per tablet Take 1 tablet by mouth once daily. (Patient not taking: Reported on 03/24/2022) No current facility-administered medications on file prior to visit. Review of Systems: GENERAL: Negative for: Fever or Chills HEENT: Negative for: Headache, Impaired Vision, Ringing in Ears, Nosebleeds NECK: Negative for: Swelling, Pain, Stiffness RESPIRATORY: Negative for: Cough, Shortness of breath, Wheezing GASTROINTESTINAL: Negative for: Heartburn, Constipation, Diarrhea, Blood in stool, Vomiting MUSCULOSKELETAL: Negative for: Muscle or joint pain, stiffness, Joint swelling NEUROLOGIC/PSYCHIATRIC: Negative for: Weakness, Paralysis, Numbness, Tingling, Tremor, Anxiety, Depression, Memory loss SKIN: Negative for: Rash, Itching GENITOURINARY: Negative for: vaginal itching, vaginal discharge, hematuria or dysuria PHYSICAL EXAM: BP 116/72 Wt 156 lb (70.8kg) LMP 08/22/2021 GENERAL: pleasant female in no apparent distress DERMATOLOGY: Normal, without lesions, non-icteric, and non-hirsute NECK: full range of motion BREAST: deferred ABDOMEN: soft, non-tender, and gravid NEURO: alert and oriented x3,exam grossly non-focal PELVIS: deferred Limited OB ultrasound exam: Not performed OB Risk Screening: Completed, positive findings include: Patient answered 'Yes' to Partner with Herpes SBIRT Shari Kwan was given the 4's screening tool. Shari answered as follows: OB Opioid Screening - Last Recorded (since 07/03/2021) Did any of your parents have a problem with alcohol or other drug use? Yes father-drug Does your partner have a problem with alcohol or other drug use? No In the past, have you had difficulties in your life because of alcohol or other drugs, including prescription medications? No In the past month have you drunk any alcohol or used other drugs? Yes Marijuana Are you taking medication for pain during the either prescribed or not? No Based on the screen and further questions, she is considered at high risk due to: continued use. Patient offered out patient treatment and cessation- declines . In discussing this issue my medical advice was that Shari Kwan continue use as she is . Her readiness to change(0 lowest-10 highest) was 0. We discussed her motivation to change based upon this response. Patient will return in 2 to discuss her progress with this plan. In total, <5 minutes of personal time was spent administering and interpreting the screen, plus performing a brief intervention. Pb Guzman MD ASSESSMENT: 26 year old at 31.3 wks gestational age PLAN: 1) Patient oriented to practice. Discussed nutrition, folic acid supplementation, dietary guidelines, exercise, smoking, alcohol, caffeine, and drug use. Discussed routine OB labs including STD/HIV. Discussed aneuploidy screening options including serum screening and nuchal translucency. 2) MR release signed for record 3) declines FLU and Tdap today- importance of VACCINES reviewed 4) New OB labs reviewed- wnl (plts 147) 5) growth us ordered- scheduled today 6) 28 weeks labs today Follow up in 2 weeks or sooner prn. Pb Guzman MD documented in this encounterC[facility] Miscellaneous Notes* Quick Notes - Yolanda Tran RN - 03/24/2022 2:45 PM EST DISTANCE HEALTH VISIT This Team Access Model visit is a phone encounter. It required patient-provider interaction for themedical decision making as documented below. Father the baby involved. Patient is transferring careat 30 weeks from [place]. She states she signed a release of records form to have her records sent here. She states that she was last seen about 2 months ago. She states it has been very difficult to get appointments canceled and transfer care. Patient states she was exposed to herpes in the past. She denies any outbreaks.Pt has a history of anxiety/depression diagnosed in 2015. She states she that she only took medication for about 3 months. She believes she is doing well off medication. Discussed increased risks of depression during and and importance of reporting the development or worsening of symptoms should they occur. She states she has not had any suicidal thoughts since age 18. Patient states that she currently vapes and uses marijuana infrequently. I have dis cussed with patient the risks of using marijuana and vaping nicotine and advised her to quit. [place] tobacco quit line information given and [facility] smoking cessation program information given as well.Yolanda Tran RN documented in this encounterCinc[facility]Evaluation [facility]* Diagnosis with care elsewhere, antepartum Exposure to herpes Contact with or exposure to other viral diseases History of depression Personal history of other mental disorder Engages in vaping Marijuana use during [facility] Diagnosis Supervision of high risk in third trimester- Primary Unspecified high-risk with care elsewhere in third trimester Limited care in third trimester Drug use affecting in third trimester 31 weeks gestation of state, incidental Thrombocytopenia affecting (HCC) documented [facility] this encounter [facility]* Diagnosis 33 weeks gestation of - Primary state, incidental Supervision of high risk in third trimester Unspecified high-risk with care elsewhere in third trimester [facility]* Diagnosis Uterine size-date discrepancy, third trimester- Primary Anemia during in third trimester Thrombocytopenia affecting (HCC) with care elsewhere, antepartum Marijuana use during Limited care in third trimester Supervision of high risk in third trimester Unspecified high-risk 34 weeks gestation of state, incidental Poor growth affecting management of mother in third trimester, single or unspecified fetus [facility]* Diagnosis with care elsewhere, antepartum- Primary Limited care in third trimester Uterine size-date discrepancy, third trimester Intrauterine growth restriction (IUGR) affecting care of mother, third trimester, single gestation 35 weeks gestation of state, incidental [facility]* Diagnosis Uterine size-date discrepancy, third trimester Poor growth affecting management of mother in third trimester, single or unspecified fetus documented [facility]* Diagnosis Poor growth affecting management of mother in third trimester, single or unspecified fetus- Primary Uterine size-date discrepancy, third trimester 38 weeks gestation of state, incidental [facility]* Diagnosis 38 weeks gestation of - Primary state, incidental Anemia during in third trimester Drug use affecting in third trimester [facility]* Diagnosis Late care affecting , antepartum- Primary [facility]* Diagnosis Short interval between pregnancies affecting , antepartum- Primary IUGR (intrauterine growth restriction) in prior , with other poor obstetric history Late care affecting , antepartum History of depression History of depression Personal history of other mental disorder Exposure to herpes Contact with or exposure to other viral diseases History of marijuana use Patient request for diagnostic testing Other specified examination [facility]* Diagnosis 16 weeks gestation of - Primary state, incidental Late care affecting , antepartum Short interval between pregnancies affecting , antepartum Supervision of high risk in third trimester Unspecified high-risk History of prior with IUGR [facility]* Diagnosis 18 weeks gestation of - Primary state, incidental Late care affecting , antepartum IUGR (intrauterine growth restriction) in prior , with other poor obstetric history Short interval between pregnancies affecting , antepartum [facility]* Diagnosis Encounter for anatomic survey- Primary Late care affecting , antepartum 19 weeks gestation of state, incidental Pyelectasis of fetus on ultrasound Abnormal findings on screening documented [facility] encounter [facility]* Diagnosis 31 weeks gestation of state, incidental with care elsewhere in third trimester Limited care in third trimester [facility]* Diagnosis Supervision of high risk in second trimester- Primary Unspecified high-risk 22 weeks gestation of state, incidental [facility]* Diagnosis Supervision of high risk in second trimester- Primary Unspecified high-risk 27 weeks gestation of state, incidental [facility]* Diagnosis Thrombocytopenia affecting (HCC)- Primary Supervision of high risk in third trimester Unspecified high-risk 29 weeks gestation of state, incidental [facility]* Diagnosis Encounter for ultrasound to check growth- Primary Encounter for routine screening for malformation using ultrasonics Late care affecting , antepartum 29 weeks gestation of state, incidental [facility]* Diagnosis Supervision of high risk in third trimester- Primary Unspecified high-risk 31 weeks gestation of state, incidental IUGR (intrauterine growth restriction) in prior , with other poor obstetric history History of marijuana use documented in this encounter [facility] for referral (narrative)* Diagnostic Procedure Only (Routine) - Pending Review Specialty Diagnoses / Procedures Referred By Raymond crabtree Referred To Contact [facility] Diagnoses 31 weeks gestation of with care elsewhere in third trimester Limited care in third trimester Procedures OBSTETRIC ULTRASOUND WHI US PREG UTERUS AFTER 1ST TRIMEST GESTATION Pb Pham MD [address] [place] [address] [facility] [address] [place] [address] Referral ID Status Reason Start Date Expiration Date Visits Requested Visits Authorized [id number] Pending Review Auto-Generat ed Referral 2 03/30/2023 1 1 [facility] for referral (narrative)* Diagnostic Procedure Only (Routine) - Authorized Specialty Diagnoses / Procedures Referred By Contac t Referred To Contact [facility] Diagnoses Uterine size-date discrepancy, third trimester Poor growth affecting management of mother in third trimester, single or unspecified fetus Procedures BIOPHYSICAL PROFILE US WHI BIOPHYSICAL PROFILE NON-STRESS TESTING Pb Pham MD [address] [place] [address] [facility] [address] [place] [address] Referral ID Status Reason Start Date Expiration Date Visits Requested Visits Authorized [id number] Authorized Auto-Generat ed Referral 2 04/28/2023 10 1 * Diagnostic Procedure Only (Routine) - Closed Specialty Diagnoses / Procedures Referred By Contac t Referred To Contact [facility] Diagnoses with care elsewhere, antepartum Limited care in third trimester Uterine size-date discrepancy, third trimester Procedures OBSTETRIC ULTRASOUND WHI US PREG UTERUS AFTER 1ST TRIMEST GESTATION Pb Pham MD [address] [place] [address] [address] Referral ID Status Reason Start Date Expiration Date V isits Requested Visits Authorized [id number] Closed Auto-Generate d Referral 04/28/2022 04/28/2023 1 1 [facility] for referral (narrative)* Diagnostic Procedure Only (Routine) - Pending Review Specialty Diagnoses / Procedures Referred By Contac t Referred To Contact [facility] Diagnoses Late care affecting , antepartum Procedures OBSTETRIC ULTRASOUND WHI US PREG UTERUS AFTER 1ST TRIMEST Yudy Adame APRN.CNM [address] [place] [address] [id number] [place] [address] Referral ID Status Reason Start Date Expiration Date Visits Requested Visits Authorized [id number] Pending Review Auto-Generat ed Referral 12/23/2022 12/23/2023 1 1 [facility] for referral (narrative)* Diagnostic Procedure Only (Routine) - Pending Review Specialty Diagnoses / Procedures Referred By Contac t Referred To Contact [facility] Diagnoses 16 weeks gestation of Late care affecting , antepartum Procedures OBSTETRIC ULTRASOUND WHI US PREG UTERUS AFTER 1ST TRIMEST Yudy Adame APRN.CNM [address] [place] [address] [facility] [address] [place] [address] Referral ID Status Reason Start Date Expiration Date Visits Requested Visits Authorized [id number] Pending Review Auto-Generat ed Referral 12/28/2022 12/28/2023 1 1 [facility] for referral (narrative)* Diagnostic Procedure Only (Routine) - Pending Review Specialty Diagnoses / Procedures Referred By Contac t Referred To Contact [facility] Diagnoses 18 weeks gestation of Late care affecting , antepartum Procedures OBSTETRIC ULTRASOUND WHI US PREG UTERUS AFTER 1ST TRIMEST Yudy Adame APRN.CN [address] [place] [address] [address] Referral ID Status Reason Start Date Expiration Date Visits Requested Visits Authorized [id number] Pending Review Auto-Generat ed Referral 01/12/2023 01/12/2024 1 1 [facility] for referral (narrative)* Diagnostic Procedure Only (Routine) - Authorized Specialty Diagnoses / Procedures Referred By Raymond crabtree Referred To Contact [facility] Diagnoses Supervision of high risk in third trimester 31 weeks gestation of IUGR (intrauterine growth restriction) in prior , Procedures OBSTETRIC ULTRASOUND WHI US PREG UTERUS AFTER 1ST TRIMEST GESTATION Farhan Pickard APRN.CNM [address] [place] [address] [address] Referral ID Status Reason Start Date Expiration Date Visits Requested Visits Authorized [id number] Authorized Auto-Generat ed Referral 04/14/2023 04/13/2024 1 1 [facility] for visit Narrative* Diagnostic Procedure Only (Routine) - Closed Specialty Diagnoses / Procedures Referred By Raymond crabtree Referred To Contact [facility] Diagnoses 31 weeks gestation of with care elsewhere in third trimester Limited care in third trimester Procedures OBSTETRIC ULTRASOUND WHI US PREG UTERUS AFTER 1ST TRIMEST GESTATION Pb Pham MD [address] [place] [address] [employer] [address] [place] [address] Referral ID Status Reason Start Date Expiration Date V isits Requested Visits Authorized [id number] Closed Auto-Generated Referral Financial Clearance Required - OON Payor Patient cleared - OON Required Payment Collected 03/30/2022 03/30/2023 1 1 [facility]* Diagnostic Procedure Only (Routine) - Closed Specialty Diagnoses / Procedures Referred By Raymond crabtree Referred To Contact [facility] Diagnoses 18 weeks gestation of Late care affecting , antepartum Procedures OBSTETRIC ULTRASOUND WHI US PREG UTERUS AFTER 1ST TRIMEST GESTATION Yudy Adame APRN.[facility] [address] [place] [address] [facility] [address] [place] [address] Referral ID Status Reason Start Date Expiration Date V isits Requested Visits Authorized [id number] Closed Auto-Generate d Referral 01/12/2023 01/12/2024 1 1 [facility] Summary Purpose Family History No Family History Records FoundNo Family History Records FoundNo Family History Records FoundNo Family History Records FoundNo Family History Records FoundNo Family History Records Found Advance Directives No Advanced Directives Records FoundNo Advanced Directives Records FoundNo Advanced Directives Records FoundNo Advanced Directives Records FoundNo Advanced Directives Records FoundNo Advanced Directives Records Found Health Concerns Problem Noted Date OB Reminders 03/30/2022 Problem Noted Date OB Reminders 03/30/2022 Problem Noted Date OB Reminders 03/30/2022 Problem Noted Date OB Reminders 03/30/2022 Problem Noted Date OB Reminders 03/30/2022 Problem Noted Date OB Reminders 03/30/2022 Problem Noted Date OB Reminders 03/30/2022 Problem Noted Date OB Reminders 03/30/2022 Problem Noted Date Diagnosed Date OB Reminders 03/30/2022 Problem Noted Date Diagnosed Date OB Reminders 03/30/2022 Problem Noted Date Diagnosed Date OB Reminders 03/30/2022 Problem Noted Date Diagnosed Date OB Reminders 03/30/2022 Problem Noted Date Diagnosed Date OB Reminders 03/30/2022 [facility] - [facility] 01/12/2023 [place] - [place] 01/12/2023 Problem Noted Date Diagnosed Date OB Reminders 03/30/2022 [facility] - [place] 01/12/2023 Education - [place] 01/12/2023 Problem Noted Date Diagnosed Date OB Reminders 03/30/2022 [facility] Education - [place] 01/12/2023 Education - [place] 01/12/2023 Problem Noted Date Diagnosed Date OB Reminders 03/30/2022 Problem Noted Date Diagnosed Date OB Reminders 03/30/2022 [facility] Education - [place] 01/12/2023 Education - [place] 01/12/2023 Problem Noted Date Diagnosed Date OB Reminders 03/30/2022 [facility] Education - [facility] 01/12/2023 Education - [place] 01/12/2023 Problem Noted Date Diagnosed Date OB Reminders 03/30/2022 [facility] - [facility] 01/12/2023 [place] - [place] 01/12/2023 Problem Noted Date Diagnosed Date OB Reminders 03/30/2022 [facility] - [facility] 01/12/2023 [facility] - [place] 01/12/2023 Problem Noted Date Diagnosed Date OB Reminders 03/30/2022 [facility] - [facility] 01/12/2023 [facility] - [place] 01/12/2023 Problem Noted Date Diagnosed Date OB Reminders 03/30/2022 [facility] - [facility] 01/12/2023 [place] - [place] 01/12/2023 Additional Source Comments INFORMATION SOURCE (unrecogn ized section and content) DATE CREATED AUTHOR AUTHOR'S ORGANIZ ATION 03/02/2018 [facility] DATE CREATED AUTHOR AUTHOR'S ORGANIZ ATION 05/16/2018 [facility] DATE CREATED AUTHOR AUTHOR'S ORGANIZ ATION 09/22/2019 [facility] DATE CREATED AUTHOR AUTHOR'S ORGANIZ ATION 03/15/2020 [employer] DATE CREATED AUTHOR AUTHOR'S ORGANIZ ATION 06/03/2023 [facility] Source Comments (unrecognize d section and content) In the event this informatio n is protected by the Federal Confidentiality of Alcohol and Drug Abuse Patient Records regulations: The Federal rules restrict any use of the information to criminally investigate or prosecute any alcohol or drug abuse patient.[facility] the event this information is protected by the Federal Confidentiality of Alcohol and Drug Abuse Patient Records regulations: The Federal rules restrict any use of the information to criminally investigate or prosecute any alcohol or drug abuse patient.[facility] Hospital[facility] the event this information is protected by the Federal Confidentiality of Alcohol and Drug Abuse Patient Records regulations: The Federal rules restrict any use of the information to criminally investigate or prosecute any alcohol or drug abuse patient.[facility] HospitalIn the event this information is protected by the Federal Confidentiality of Alcohol and Drug Abuse Patient Records regulations: The Federal rules restrict any use of the information to criminally investigate or prosecute any alcohol or drug abuse patient.[facility] HospitalIn the event this information is protected by the Federal Confidentiality of Alcohol and Drug Abuse Patient Records regulations: The Federal rules restrict any use of the information to criminally investigate or prosecute any alcohol or drug abuse patient.[facility] HospitalIn the event this information is protected by the Federal Confidentiality of Alcohol and Drug Abuse Patient Records regulations: The Federal rules restrict any use of the information to criminally investigate or prosecute any alcohol or drug abuse patient.[facility] HospitalIn the event this information is protected by the Federal Confidentiality of Alcohol and Drug Abuse Patient Records regulations: The Federal rules restrict any use of the information to criminally investigate or prosecute any alcohol or drug abuse patient.[facility] HospitalIn the event this information is protected by the Federal Confidentiality of Alcohol and Drug Abuse Patient Records regulations: The Federal rules restrict any use of the information to criminally investigate or prosecute any alcohol or drug abuse patient.[facility] HospitalIn the event this information is protected by the Federal Confidentiality of Alcohol and Drug Abuse Patient Records regulations: The Federal rules restrict any use of the information to criminally investigate or prosecute any alcohol or drug abuse patient.[facility] HospitalIn the event this information is protected by the Federal Confidentiality of Alcohol and Drug Abuse Patient Records regulations: The Federal rules restrict any use of the information to criminally investigate or prosecute any alcohol or drug abuse patient.[facility] HospitalIn the event this information is protected by the Federal Confidentiality of Alcohol and Drug Abuse Patient Records regulations: The Federal rules restrict any use of the information to criminally investigate or prosecute any alcohol or drug abuse patient.[facility] HospitalIn the event this information is protected by the Federal Confidentiality of Alcohol and Drug Abuse Patient Records regulations: The Federal rules restrict any use of the information to criminally investigate or prosecute any alcohol or drug abuse patient.[facility] HospitalIn the event this information is protected by the Federal Confidentiality of Alcohol and Drug Abuse Patient Records regulations: The Federal rules restrict any use of the information to criminally investigate or prosecute any alcohol or drug abuse patient.[facility] HospitalIn the event this information is protected by the Federal Confidentiality of Alcohol and Drug Abuse Patient Records regulations: The Federal rules restrict any use of the information to criminally investigate or prosecute any alcohol or drug abuse patient.[facility] HospitalIn the event this information is protected by the Federal Confidentiality of Alcohol and Drug Abuse Patient Records regulations: The Federal rules restrict any use of the information to criminally investigate or prosecute any alcohol or drug abuse patient.[facility] HospitalIn the event this information is protected by the Federal Confidentiality of Alcohol and Drug Abuse Patient Records regulations: The Federal rules restrict any use of the information to criminally investigate or prosecute any alcohol or drug abuse patient.[facility] HospitalIn the event this information is protected by the Federal Confidentiality of Alcohol and Drug Abuse Patient Records regulations: The Federal rules restrict any use of the information to criminally investigate or prosecute any alcohol or drug abuse patient.[facility] HospitalIn the event this information is protected by the Federal Confidentiality of Alcohol and Drug Abuse Patient Records regulations: The Federal rules restrict any use of the information to criminally investigate or prosecute any alcohol or drug abuse patient.[facility] HospitalIn the event this information is protected by the Federal Confidentiality of Alcohol and Drug Abuse Patient Records regulations: The Federal rules restrict any use of the information to criminally investigate or prosecute any alcohol or drug abuse patient.[facility] HospitalIn the event this information is protected by the Federal Confidentiality of Alcohol and Drug Abuse Patient Records regulations: The Federal rules restrict any use of the information to criminally investigate or prosecute any alcohol or drug abuse patient.[facility] HospitalIn the event this information is protected by the Federal Confidentiality of Alcohol and Drug Abuse Patient Records regulations: The Federal rules restrict any use of the information to criminally investigate or prosecute any alcohol or drug abuse patient.[facility] HospitalIn the event this information is protected by the Federal Confidentiality of Alcohol and Drug Abuse Patient Records regulations: The Federal rules restrict any use of the information to criminally investigate or prosecute any alcohol or drug abuse patient.[facility] HospitalIn the event this information is protected by the Federal Confidentiality of Alcohol and Drug Abuse Patient Records regulations: The Federal rules restrict any use of the information to criminally investigate or prosecute any alcohol or drug abuse patient.[facility] HospitalIn the event this information is protected by the Federal Confidentiality of Alcohol and Drug Abuse Patient Records regulations: The Federal rules restrict any use of the information to criminally investigate or prosecute any alcohol or drug abuse patient.[facility] HospitalIn the event this information is protected by the Federal Confidentiality of Alcohol and Drug Abuse Patient Records regulations: The Federal rules restrict any use of the information to criminally investigate or prosecute any alcohol or drug abuse patient.[facility] HospitalIn the event this information is protected by the Federal Confidentiality of Alcohol and Drug Abuse Patient Records regulations: The Federal rules restrict any use of the information to criminally investigate or prosecute any alcohol or drug abuse patient.[facility] HospitalIn the event this information is protected by the Federal Confidentiality of Alcohol and Drug Abuse Patient Records regulations: The Federal rules restrict any use of the information to criminally investigate or prosecute any alcohol or drug abuse patient.[facility] Reason for Visit (unrecogniz ed section and content) Reason Comments Initial OB Visit Specialty Diagnoses / Procedures Referred By Raymond t Referred To Contact [facility] Diagnoses New OB transferring care from [place] 29 weeks Pt signed for records. Some labs available in [employer] Procedures [facility] OB 1ST EXAM Self Pb Pham MD [address] [place] [address] Referral ID Status Reason Start Date Expiration Date Visits Requested Visits Authorized [id number] Authorized Patient Cleared - Qualified 100% FAS 06/28/2022 99 99 Reason Onset Date Comments Care 04/14/2022 Specialty Diagnoses / Procedures Referred By Contac t Referred To Contact [facility] Diagnoses OB Procedures WELLNESS EXAMS EST 18-39 YRS EST WHI OB Self Farhan Pickard, STEAM PRESSER.CNM [address] [place] [address] Referral ID Status Reason Start Date Expiration Date Visits Requested Visits Authorized [id number] Closed Financial Clearance Required - OON Payor OON Notification Letter Patient cleared - OON Required Payment Collected 04/13/2022 05/09/2022 1 1 Reason Comments Results Reason Onset Date Comments Care 04/28/2022 Specialty Diagnoses / Procedures Referred By Contac t Referred To Contact [facility] Diagnoses 31 weeks gestation of with care elsewhere in third trimester Limited care in third trimester Procedures OBSTETRIC ULTRASOUND WHI US PREG UTERUS AFTER 1ST TRIMEST GESTATION Pb Pham MD [address] [place] [address] [employer] [address] [place] [address] Referral ID Status Reason Start Date Expiration Date V isits Requested Visits Authorized [id number] Closed Auto-Generated Referral Financial Clearance Required - OON Payor Patient cleared - OON Required Payment Collected 03/30/2022 03/30/2023 1 1 Reason Comments US Specialty Diagnoses / Procedures Referred By Contac t Referred To Contact [facility] Diagnoses with care elsewhere, antepartum Limited care in third trimester Uterine size-date discrepancy, third trimester Procedures OBSTETRIC ULTRASOUND WHI US PREG UTERUS AFTER 1ST TRIMEST GESTATION Pb Pham MD [address] [place] [address] [address] Referral ID Status Reason Start Date Expiration Date V isits Requested Visits Authorized [id number] Closed Auto-Generate d Referral 04/28/2022 04/28/2023 1 1 Specialty Diagnoses / Procedures Referred By Contac t Referred To Contact [facility] Diagnoses Uterine size-date discrepancy, third trimester Poor growth affecting management of mother in third trimester, single or unspecified fetus Procedures BIOPHYSICAL PROFILE US WHI BIOPHYSICAL PROFILE NON-STRESS TESTING Pb Pham MD [address] [place] [address] [address] Referral ID Status Reason Start Date Expiration Date V isits Requested Visits Authorized [id number] Closed Auto-Generate d Referral 04/28/2022 04/28/2023 10 1 Reason Onset Date Comments Care 05/15/2022 Reason Comments Ob Delivery Note Reason Comments Future Appointment Reason Comments late care Reason Onset Date Comments Care 12/28/2022 Reason Comments PRAF- initial Specialty Diagnoses / Procedures Referred By Contac t Referred To Contact [facility] Diagnoses 16 weeks gestation of Late care affecting , antepartum Procedures OBSTETRIC ULTRASOUND WHI US PREG UTERUS AFTER 1ST TRIMEST GESTATION Yudy Adame APRN.[facility] [address] [place] [address] [address] Referral ID Status Reason Start Date Expiration Date V isits Requested Visits Authorized [id number] Closed Auto-Generate d Referral 12/28/2022 12/28/2023 1 1 Reason Onset Date Comments Care 02/09/2023 Reason Comments PRAF Reason Onset Date Comments Care 03/16/2023 Reason Onset Date Comments Care 03/31/2023 Reason Onset Date Comments Care 04/14/2023 Reason Comments Explosive Ordnance Disposal Technician - Other PRAF Care Teams (unrecognized sec tion and content) Traffic Agent Relationship Specialty Start Date End Date Jordan Alejo MD PCP - General Family Medicine 05/18/15 Traffic Agent Relationship Specialty Start Date End Date Jordan Alejo MD PCP - General Family Medicine 05/18/15 Traffic Agent Relationship Specialty Start Date End Date Jordan Alejo MD PCP - General Family Medicine 05/18/15 Traffic Agent Relationship Specialty Start Date End Date Jordan Alejo MD PCP - General Family Medicine 05/18/15 Traffic Agent Relationship Specialty Start Date End Date Jordan Alejo MD PCP - General Family Medicine 05/18/15 Traffic Agent Relationship Specialty Start Date End Date Jordan Alejo MD PCP - General Family Medicine 05/18/15 Traffic Agent Relationship Specialty Start Date End Date Jordan Alejo MD PCP - General Family Medicine 05/18/15 Traffic Agent Relationship Specialty Start Date End Date Jordan Alejo MD PCP - General Family Medicine 05/18/15 Traffic Agent Relationship Specialty Start Date End Date Jordan Alejo MD PCP - General Family Medicine 05/18/15 Traffic Agent Relationship Specialty Start Date End Date Jordan Alejo MD PCP - General Family Medicine 05/18/15 Traffic Agent Relationship Specialty Start Date End Date Jordan Alejo MD PCP - General Family Medicine 05/18/15 Traffic Agent Relationship Specialty Start Date End Date Jordan Alejo MD PCP - General Family Medicine 05/18/15 Traffic Agent Relationship Specialty Start Date End Date Jordan Alejo MD PCP - General Family Medicine 05/18/15 Traffic Agent Relationship Specialty Start Date End Date Jordan Alejo MD PCP - General Family Medicine 05/18/15 Traffic Agent Relationship Specialty Start Date End Date Jordan Alejo MD PCP - General Family Medicine 05/18/15 Traffic Agent Relationship Specialty Start Date End Date Jordan Alejo MD PCP - General Family Medicine 05/18/15 Traffic Agent Relationship Specialty Start Date End Date Jordan Alejo MD PCP - General Family Medicine 05/18/15 Traffic Agent Relationship Specialty Start Date End Date Jordan Alejo MD PCP - General Family Medicine 05/18/15 Traffic Agent Relationship Specialty Start Date End Date Jordan Alejo MD PCP - General Family Medicine 05/18/15 Traffic Agent Relationship Specialty Start Date End Date Jordan Alejo MD PCP - General Family Medicine 05/18/15 FOR RECORDS PERTAINING TO PATIENTS WHO ARE OR HAVE BEEN ENROLLED IN A CHEMICAL DEPENDENCY/SUBSTANCEABUSE PROGRAM, SOME INFORMATION MAY BE OMITTED. This clinical summary was aggregated from multiple sources. Caution should be exercised in using it in the provision of clinical care. This summary normalizes information from multiple sources, and as a consequence, information in this document may materially change the coding, format and clinical context of patient data. In addition, data may be omitted in some cases. CLINICAL DECISIONS SHOULD BE BASED ON THE PRIMARY CLINICAL RECORDS. [facility]. provides no warranty or guarantee of the accuracy or completeness of information in this document.
--- NOTE | 2023-06-13 15:34 | RAD_ITS ---
EXAM: XR CHEST, 1 VIEW CLINICAL INDICATION: syncope TECHNIQUE: Frontal view of the chest. COMPARISON: No relevant prior studies available. FINDINGS: LUNGS AND PLEURAL SPACES: Unremarkable. No consolidation or edema. No pneumothorax. No effusion. HEART: Unremarkable. Cardiac silhouette not enlarged. MEDIASTINUM: Central airways and mediastinal contour are unremarkable. BONES/JOINTS: Unremarkable. No acute fracture. SOFT TISSUES: Unremarkable. RAD/Chest 1 View (Portable) IMPRESSION: No radiographic evidence of acute cardiopulmonary disease. Electronically Signed: Ethan Kumar MD at 15:47 EST ,
[2023-06-13 16:24] LABS: International Normalized Ratio 1.1; Partial Thromboplast Time 24.7 Seconds (24.1-36.2); Prothrombin Time (Protime)PT. 14.4 SECONDS (11.7-14.9)
[2023-06-13] MEDS: 0.9% Normal Saline (500mL Bag) 500 ML 999 ML IV (17:55)
--- NOTE | 2023-06-13 18:45 | EMB_PTH ---
PATHOLOGY RESULTS PATIENT: SHARI KWAN LOC: ED U#:[id number] AGE/SX: 27/F ROOM: RE06/13/[address]: Dr. Nohemy Krueger MD : 1995 BED: DIS: 06/13/2023 SPEC #: [id number] RECD: 06/14/23 07:44 STATUS: SULY REQ #: [id number] CLIVE: 06/13/23 18:[address]: Nohemy Krueger DEPT: SURGICAL PATHOLOGY RECD BY: Danni Strickland ENTERED: 06/14/23 07:45 SP TYPE: ENDOM BX/C OTHR DR: Dr. Ion Hahn, DO No Primary Care Phys Tissues: Endometrium, NOS Procedures: Surgery Specimen Level IV Comments: @ Ordering doctor for SUIV edited from to @ by [email or web address] at 06/14/23 0951 @ Submitting doctor edited from to @ by [email or web address] at 06/14/23 0951 HEADER OPERATION: Suction dilation and curettage PRE-OP DIAGNOSIS: Retained products of conception TISSUE SUBMITTED: Endometrial curettings MICROSCOPIC DIAGNOSIS Endometrium, curettings: Fragments of benign myometrium. Fragments of benign endometrium with chronic endometritis. Blood clots and hyalinized tissue. AM:branden 06/15/2023 COMMENT Chorionic villi are not identified. Clinical correlation is suggested. MICROSCOPIC DESCRIPTION Slides are reviewed. GROSS DESCRIPTION Received in fixative is one container labeled with the patient's name and designated endometrial curettings. The specimen consists of multiple irregular fragments of blood clots with scant fragments of kiran soft tissue that in aggregate measure 10.0 x 11.0 x 3.0 cm. No tissue or placental tissue is identified. Traffic Rate Clerk tissue is submitted in four cassettes. / SJ:branden 06/14/2023 TC:5 CPT: 12601
--- NOTE | 2023-06-13 18:47 | PCM.HP.BLA ---
History and Physical Date of Admission: 06/13/23 27-year-old female 1 para 1 who had a vaginal delivery on 05/19/2023 presents today after she passed some clots and had a large gush of blood she got lightheaded and dizzy and passed out hit her head. She arrived to the emergency room. She was found to be hemodynamically stable and not actively bleeding. However upon transvaginal ultrasound she had thickened endometrium of over 4 cm consistent with retained products. Review of systems: General no fevers or chills Cardiac no chest pain or palpitations Respiratory no shortness of breath or cough GI no nausea vomiting or diarrhea average lochia at this time, no foul discharge or odor Past medical history significant for for 1 spontaneous vaginal delivery, first-degree laceration. IUGR induction at 38 weeks No known drug allergies Physical exam: General: Awake alert, no acute distress Skin warm dry and intact Heart S1-S2 regular rate and rhythm Lungs clear to auscultation bilaterally [employer] normal external genitalia normal vagina vault with moderate amount of blood. Cervix is soft. Uterus is approximately 8 weeks size. CBC and ultrasound reviewed. Assessment & Plan Assessment/Plan (1) Retained products of conception: PLAN: Plan Delayed hemorrhage. Ultrasound findings consistent with retained products of conception. Risk benefits alternatives and personnel involved with suction D&C were discussed with patient, her questions were answered to her satisfaction she desires to proceed and consent was signed.
--- NOTE | 2023-06-13 18:54 | PCM.DC ---
Discharge Instructions Diet Discharge Diet: No restrictions Activity May resume sexual activity in: 4 weeks Lifting Restrictions: none Dressing / Incision Call your doctor if your incision/area has: Sudden Increased Bleeding and Foul Smelling Discharge Call your doctor if you observe: Fever of 101 or Higher and Using more than 1 pad per hour (for 2 hrs in a row) Follow Up Care Please Follow Up With: Nohemy Krueger MD When: 2-4 weeks or as needed. Call [phone] or send a [employer] message to make an appointment or with any concerns. Test Results: Test results from this visit will be discussed in further detail at your follow-up appointment, if applicable. Discharge Plan Disposition Disposition: Acute Care Hospital [facility] Discharge Date/Time: 06/13/23 18:30
[2023-06-13] MEDS: Methylergonovine 0.2 MG/ML Ampul 0.200000000000000011 MG IM (19:06)
[2023-06-13] MEDS: Lidocaine 1%/Epi 1:200 (30ml) 30 ML AMPUL (19:08)
[2023-06-13] MEDS: miSOPROStol 200 MCG Tablet ×2 (19:14)
--- NOTE | 2023-06-13 19:24 | PCM.OPRPT ---
Report of Operation Date of Procedure: 06/13/23 Pre-Operative Diagnosis: delayed hemorrhage Post-Operative Diagnosis: same Surgery/Procedure Performed:: Suction D&C with ultrasound guidance Description of Surgical Findings:: enlarged boggy uterus with clot and debris, normal cervix and vagin Surgeon: Nohemy Krueger roll edge machine operator: None Type of Anesthesia: MAC/Supplemental/Local Anesthesiologist: Efrain Sands Special Medications: pitocin in IV, IM methergine x 1 and misoprostol 1000 mcg rectal x1 in OR Specimen's removed: endometrial curettings, suspected retained POCS Drains: none Estimated Blood Loss (mL): 300 Fluids Replaced: 700 Description of Procedure: The patient was taken to the operating room where she was prepped and draped in dorsal lithotomy position. A weighted speculum was placed in the vagina and the anterior lip of the cervix was grasped with a long Allis clamp. The uterus was anteverted and boggy. The cervix was dilated with moderate amount of clot at the os. Under ultrasound guidance a 10 mm suction curette was used to suction out the clot and debris. The endometrial stripe was noted. A brief sharp curettage was done confirming that all the products were removed. However after few minutes the repeat ultrasound showed that there was some recurrent blood accumulation in the uterus. Again another suction pass was made while IM Methergine was given. Fundal massage was then given and IV Pitocin initiated with 10 units and 250 cc. After several minutes of fundal massage another ultrasound was performed and there was a small amount of blood reaccumulation. Another gentle suction curettage was done and 1000 mcg of Cytotec was placed rectally. Patient was then observed for another 5 minutes and there was no significant reaccumulation of blood in the uterus, there is no active Bleeding from the cervix. The uterus was firm. The instruments were removed. A vaginal sweep was performed by me. Sponge and needle counts were correct. The patient was taken recovery room in stable condition. She will be given p.o. doxycycline postoperatively for antibiotic prophylaxis. Grafts/Implants Used: none Procedure Start Time: 18:59 Procedure Stop Time: 19:17 Complications none Admit VTE Documentation VTE Present on Admission: No VTE Mechan Device Prophylaxis: None VTE Pharm Prophylaxis ordered?: No Reason prophylaxis not ordered:: Procedure Not Indicated
[2023-06-13] MEDS: Doxycycline 100 MG CAPSULE 200 MG PO (20:09)
[2023-06-13] MEDS: Acetaminophen 500 MG Tablet 1000 MG PO (20:09)
== END 2023-06-13 20:48 | disposition home or self-care (01) ==
LOC: ED 18:34 → ACINP 19:35 → ED 06-14 11:14 → AC 06-14 11:15
PROVIDERS: Emergency Provider Emergency Medicine; Referring Provider Obstetrics & Gynecology; Visit Provider Obstetrics & Gynecology
PROC: (CPT 59160; principal; 2023-06-13 18:30)
DX: O72.2 Delayed and secondary postpartum hemorrhage (principal); O99.335 Smoking (tobacco) complicating the puerperium; O86.12 Endometritis following delivery; F17.290 Nicotine dependence, other tobacco product, uncomplicated
CPT/HCPCS: 59160; 00940; 70450; 71045; 76830; 80048; 84484; 84702; 85025; 85610; 85730; 86850; 86900; 86901; 88305; 93005; 96361; 96372; 96374; 99283; A4216; J2405